=== PATIENT | female | born 1940 | race Caucasian/White ===

== ENCOUNTER 2020-04-12 09:52 | Inpatient (IN) | payer OTHER, MEDICARE ==
--- NOTE | 2020-04-12 10:04 | PDOC ---
History of Present Illness <Nallely Gómez - Last Filed: 04/12/20 12:26> - History of Present Illness Initial Comments: 04/12/20 11:29 80 yo female with pmh of dementia, CVA, epilepsy, afib, hld, anxiety disorder, GERD presents to ED after unwitnessed fall. Pt very poor historian due to dementia according to nursing aid. PT hx was given by nursing aid who said she got to [facility] and found her on the floor next to her bed. Pt according to [facility] was on floor ten min prior to arrival. Pt had unwitnessed fall complaining of left hip pain. PT yesterday was more off balance then normal so nursing aid g shaynee pt walker to walk. Pt currently not complaining of anything. PMH: GERD, Dementia, CVA, HLD, angina pectoris, afib PSH: unknown Allergies: NKDA Social: From [facility] <Santana Harris - Last Filed: 04/12/20 20:02> - General Stated Complaint: FALL Time Seen by Provider: 04/12/20 10:00 Past History <Nallely Gómez - Last Filed: 04/12/20 12:26> <Santana Harris - Last Filed: 04/12/20 20:02> - Medical History Allergies/Adverse Reactions: Allergies Allergy/AdvReac Type Severity Reaction Status Date / Time No Known Allergies Allergy Unverified 04/12/20 10:10 Home Medications: Ambulatory Orders Amlodipine Besylate [Norvasc -] 10 mg PO DAILY 04/12/20 Apixaban [Eliquis] 5 mg PO BID 04/12/20 Atorvastatin Ca [Lipitor] 40 mg PO HS 04/12/20 Cyanocobalamin [Vitamin B12 -] 100 mcg PO DAILY 04/12/20 Divalproex Sodium [Depakote] 500 mg PO BID 04/12/20 Folic Acid 1 mg PO DAILY 04/12/20 Irbesartan [Avapro] 300 mg PO DAILY 04/12/20 LORazepam [Ativan] 0.5 mg PO TID 04/12/20 Melatonin 3 mg PO HS 04/12/20 Metoprolol Tartrate [Lopressor] 50 mg PO BID 04/12/20 Pantoprazole Sodium 40 mg PO DAILY 04/12/20 Polyethylene Glycol 3350 [Miralax (For Daily Use) -] 17 gm PO DAILY 04/12/20 Thiamine HCl [B-1] 100 mg PO TID 04/12/20 Venlafaxine HCl [Effexor Xr] 75 mg PO DAILY 04/12/20 traZODone HCL [Trazodone HCl] 50 mg PO HS 04/12/20 Review of Systems - Review of Systems Able to Perform ROS?: No (pt dementia ) <Santana Harris - Last Filed: 04/12/20 20:02> *Physical Exam - Vital Signs Last Vital Signs Temp Pulse Resp BP Pulse Ox 97.8 F 74 18 140/53 L 95 04/12/20 10:00 04/12/20 10:00 04/12/20 10:00 04/12/20 10:00 04/12/20 10:00 <Nallely Gómez - Last Filed: 04/12/20 12:26> - Physical Exam 04/12/20 12:08 GENERAL: Awake, alert, and oriented x1 HEAD: No signs of trauma, normocephalic, atraumatic EYES: PERRLA, EOMI, sclera anicteric, conjunctiva clear ENT: Auricles normal inspection, hearing grossly normal, nares patent, dry oropharynx NECK: Normal ROM, supple, no lymphadenopathy, JVD, or masses LUNGS: No distress, speaks full sentences, clear to auscultation bilaterally HEART: Regular rate and rhythm, normal S1 and S2, no murmurs, rubs or gallops, peripheral pulses normal and equal bilaterally. ABDOMEN: Soft, nontender, normoactive bowel sounds. No guarding, no rebound. No masses EXTREMITIES : Normal inspection, Normal range of motion, no edema. No clubbing or cyanosis. NEUROLOGICAL: Cranial nerves II through XII intact. no focal sensorimotor deficits 5/5 muscle strength in bilateral upper and lower ext. SKIN: Warm, Dry, normal turgor, no rashes or lesions note 04/12/20 19:59 <Santana Harris - Last Filed: 04/12/20 20:02> Heart Score/ECG Review - ECG Impressions Comment:: 04/12/20 20:01 Normal sinus rhythm Normal KS, QRS, and QT interval T wave flattening in V1 and V2 no prior EKG. <Santana Harris - Last Filed: 04/12/20 20:02> ED Treatment Course - LABORATORY CBC & Chemistry Diagram: 04/12/20 10:25 04/12/20 10:25 - ADDITIONAL ORDERS Additional order review: Laboratory Results 04/12/20 04/12/20 04/12/20 11:05 10:25 10:25 PT with INR 14.20 H INR 1.18 H PTT (Actin FS) 27.6 Sodium 168 H* Potassium 4.8 Chloride 128 H Carbon Dioxide 27 Anion Gap 13 BUN 18.4 H Creatinine 1.1 Est GFR (CKD-EPI)AfAm 55.30 Est GFR (CKD-EPI)NonAf 47.71 Random Glucose 103 Calcium 8.3 L Total Bilirubin 0.5 AST 36 ALT 45 Alkaline Phosphatase 63 Troponin I < 0.02 Total Protein 6.0 L Albumin 2.4 L Urine Color Yellow Urine Appearance Clear Urine pH 6.0 Ur Specific [place] 1.017 Urine Protein Trace Urine Glucose (UA) Negative Urine Ketones Negative Urine Blood 1+ H Urine Nitrite Positive H Urine Bilirubin Negative Urine Urobilinogen 1.0 Ur Leukocyte Esterase 2+ H Urine WBC (Auto) 995 Urine RBC (Auto) 29 Urine Casts (Auto) 4 U Epithel Cells (Auto) 8 Urine Bacteria (Auto) >9,000 04/12/20 10:25 RBC 4.31 MCV 95.1 MCHC 31.7 L RDW 15.8 H MPV 10.3 Neutrophils % 75.4 Lymphocytes % 6.9 L Monocytes % 16.9 H Eosinophils % 0.4 Basophils % 0.4 - RADIOLOGY Radiology Studies Ordered: Category Date Time Status CERVICAL SPINE CT W/O CONTR [CT] Stat CT Scan 04/12/20 10:[address] WITHOUT CONTRAST [CT] Stat CT Scan 04/12/20 10:07 Completed CHEST X-RAY PORTABLE* [RAD] Stat Radiology 04/12/20 10:07 Completed - Medications Given in the ED: ED Medications Discontinued Medications Generic Name Dose Route Start Last Admin Trade Name Freq PRN Reason Stop Dose Admin Acetaminophen 1,000 mg 04/12/20 11:46 04/12/20 12:08 Ofirmev Injection - IVPB 04/12/20 11:47 1,000 mg ONCE ONE Administration <Nallely Gómez - Last Filed: 04/12/20 12:26> - LABORATORY CBC & Chemistry Diagram: 04/12/20 10:25 04/12/20 10:25 <Santana Harris - Last Filed: 04/12/20 20:02> Medical Decision Making - Medical Decision Making 04/12/20 12:09 80 yo female presents with pmh above for unwitnessed fall. Pt yesterday was having difficulty ambulating UA: UTI CMP: elevated Na Will give 1 L NaCl Will give 1g rocephin. Will admit for hypernatremia and UTI 04/12/20 12:27 Dr. Azeb Reynolds was made aware of pt HPI, ED course and plan. Pt admitted to . <Santana Harris - Last Filed: 04/12/20 20:02> Discharge - Discharge Information Problems reviewed: Yes - Admission Yes <Nallely Gómez - Last Filed: 04/12/20 12:26> - Discharge Information Problems reviewed: Yes - Admission Yes <Santana Harris - Last Filed: 04/12/20 20:02> - Discharge Information Clinical Impression/Diagnosis: Hypernatremia, Fall UTI (urinary tract infection) Qualifiers: Urinary tract infection type: site unspecified Hematuria presence: without hematuria Qualified Code(s): N39.0 - Urinary tract infection, site not specified Condition: Guarded
[2020-04-12 10:09] VITALS: BMI 28.9
--- OUTSIDE RECORDS SUMMARY | 2020-04-12 10:52 | XMS ---
:1940 Author Organization [facility] Care Team Providers Name Role Phone Dwaine Cedeño Unavailable Dwaine Cedeño Unavailable Dwaine Cedeño Unavailable Dwaine Cedeño Unavailable Re-disclosure Warning The records that you are about to access may contain information from federally- assisted alcohol or drug abuse programs. If such information is present, then the following federally mandated warning applies: This information has been disclosed to you from records protected by federal confidentiality rules (42 CFR part 2). The federal rules prohibit you from making any further disclosure of this information unless further disclosure is expressly permitted by the written consent of the person to whom it pertains or as otherwise permitted by 42 CFR part 2. A general authorization for the release of medical or other information is NOT sufficient for this purpose. The Federal rules restrict any use of the information to criminally investigate or prosecute any alcohol or drug abuse patient.The records that you are about to access may contain highly sensitive health information, the redisclosure of which is protected by Article 27-F of the [facility] Public Health law. If you continue you may haveaccess to information: Regarding HIV / AIDS; Provided by facilities licensed or operated by the [facility] Office of Mental Health; or Provided by the [facility] Office for People With Developmental Disabilities. If such information is present, then the following [facility] mandated warning applies: This information has been disclosed to you from confidential records which are protected by state law. State law prohibits you from making any further disclosure of this information without the specific written consent of the person to whom it pertains, or as otherwise permitted by law. Any unauthorized further disclosure in violation of state law may result in a fine or custodial sentence or both. A general authorization for the release of medical or other information is NOT sufficient authorization for further disclosure. Allergies and Adverse Reactions Type Description Substance Reaction Status Data Source(s ) No Known Allergies No Known Allergies P[facility] ([facility]) To Be Determined To Be Determined PC C ([facility]) Encounters Encounter Providers Location Date Indications Data Source(s ) Inpatient Attender: Dwaine 03/26/2020 [facility]:00 PM EDT Nursing H ome) Patient admitted. Insurance Providers Payer name Policy type Policy ID Covered Covered alliance party's Policy P toni / Coverage alliance party ID relationship to [facility] type reagan [facility] [id number] SP [id number] CARE OPTIONS MEDICARE [id number] SP [id number] Medicare MDA [id number] None [id number] SELF PAY 0000 Self 0000 A.A.R.P. [id number] Self [id number] MEDICARE B [id number] Self [id number] 2A MEDICARE A [id number] Self [id number] 2A Problems, Conditions, and Diagnoses Code Display Name Description Problem Type Effective Data Dates Source(s) I69.820 Aphasia following APHASIA FOLLOWING Diagnosis 03/26/2020 [facility] ([facility] other OTHER 12:00:00 AM [facility] cerebrovascular CEREBROVASCULAR EDT Nurs ing [place]) disease DISEASE K21.9 Gastro-esophageal GASTRO-ESOPHAGEAL Diagnosis 03/26/2020 [facility] ([facility] reflux disease REFLUX DISEASE 12:00:00 AM [facility] without esophagitis WITHOUT ESOPHAGITIS EDT [facility]) I10 Essential (primary) ESSENTIAL (PRIMARY) Diagnosis 020 [facility] ([facility] hypertension HYPERTENSION 12:00:00 AM [facility] EDT [facility]) I48.91 Unspecified atrial UNSPECIFIED ATRIAL Diagnosis 0 [facility] ([facility] fibrillation FIBRILLATION 12:00:00 AM [facility] EDT [facility]) G47.00 Insomnia, INSOMNIA, Diagnosis 03/26/2020 [facility] ([facility] unspecified UNSPECIFIED 12:00:00 AM [facility] EDT [facility]) K59.00 Constipation, CONSTIPATION, Diagnosis 03/26/2020 [facility] ([facility] unspecified UNSPECIFIED 12:00:00 AM [facility] EDT [facility]) I25.10 Atherosclerotic ATHEROSCLEROTIC Diagnosis 03/26/2020 [facility] ([facility] heart disease of HEART DISEASE OF 12:00:00 AM [facility] [place] coronary [place] CORONARY EDT Nurs ing Home) artery without ARTERY WITHOUT angina pectoris ANGINA PECTORIS E78.5 Hyperlipidemia, HYPERLIPIDEMIA, Diagnosis 03/26/2020 [facility] ([facility] unspecified UNSPECIFIED 12:00:00 AM [facility] EDT [facility]) F41.9 Anxiety disorder, ANXIETY DISORDER, Diagnosis 03/26/2020 [facility] ([facility] unspecified UNSPECIFIED 12:00:00 AM [facility] EDT [facility]) R26.2 Difficulty in DIFFICULTY IN Diagnosis 03/26/2020 [facility] ([facility] walking, not WALKING, NOT 12:00:00 AM [facility] elsewhere ELSEWHERE EDT [facility]) classified CLASSIFIED M62.81 Muscle weakness MUSCLE WEAKNESS Diagnosis 03/26/2020 [facility] (St. (generalized) (GENERALIZED) 12:00:00 AM [facility] EDT [facility]) J18.9 Pneumonia, PNEUMONIA, Diagnosis 03/26/2020 [facility] ([facility] unspecified UNSPECIFIED 12:00:00 AM [facility] organism ORGANISM EDT [facility]sp) J69.0 Pneumonitis due to PNEUMONITIS DUE TO Diagnosis 0 [facility] ([facility] inhalation of food INHALATION OF FOOD 12:00:00 AM [facility] and vomit AND VOMIT EDT [facility]) I63.9 Cerebral CEREBRAL Diagnosis 03/26/2020 [facility] ([facility] infarction, INFARCTION, 12:00:00 AM [facility] unspecified UNSPECIFIED EDT [facility]sp ) F32.9 Major depressive MAJOR DEPRESSIVE Diagnosis 03/26/2020 [facility] (St. disorder, single DISORDER, SINGLE 12:00:00 AM [facility]indy ferguson episode, EPISODE, EDT [facility]) unspecified UNSPECIFIED F03.91 Unspecified UNSPECIFIED Diagnosis 03/26/2020 [facility] ([facility] dementia with DEMENTIA WITH 12:00:00 AM [facility] behavioral BEHAVIORAL EDT [facility]) disturbance DISTURBANCE G40.804 Other epilepsy, OTHER EPILEPSY, Diagnosis 03/26/2020 [facility] ([facility]. intractable, INTRACTABLE, 12:00:00 AM [facility] without status WITHOUT STATUS EDT Nursin g Home) epilepticus EPILEPTICUS G93.41 Metabolic METABOLIC Diagnosis 03/26/2020 [facility] ([facility]. encephalopathy ENCEPHALOPATHY 12:00:00 AM [facility] EDT [facility]) Results ID Date Data Source [id number] 03/29/2020 12:16:00 PM EDT [facility] Name Value Range Interpretation Code Description Data Opal rce(s) Supporting Document(s ) HOLOGIC MARIANSDKY SARS-CoV-2 TMA PCR [facility] and reported by [facility]. ID Date Data Source [id number] 03/26/2020 10:03:00 AM EDT [facility] Name Value Range Interpretation Description Data Sup porting Code Source(s) Document(s ) SARS [facility] coronavirus 2 RNA [Presence] in Respiratory specimen by JENNIFER with probe detection This lab was ordered by [facility] and reported by [facility]. ID Date Data Source [id number] 03/17/2020 08:42:00 AM EDT [facility] Name Value Range Interpretation Description Data Sup porting Code Source(s) Document(s ) SARS [facility] coronavirus 2 RNA [Presence] in Respiratory specimen by JENNIFER with probe detection This lab was ordered by [facility] and reported by [facility]. ID Date Data Source [id number] 03/16/2020 11:10:00 AM EDT [facility] Name Value Range Interpretation Description Data Sup porting Code Source(s) Document(s ) SARS [facility] coronavirus 2 RNA [Presence] in Respiratory specimen by JENNIFER with probe detection This lab was ordered by [facility] and reported by [facility]. ID Date Data Source [id number] 01/19/2020 07:00:00 PM EDT [facility] Name Value Range Interpretation Description Data Sup porting Code Source(s) Document(s ) SARS [facility] coronavirus 2 RNA [Presence] in Respiratory specimen by JENNIFER with probe detection This lab was ordered by [facility] and reported by [facility]. ID Date Data Source [id number] 12/31/2019 05:00:00 PM EDT [facility] Name Value Range Interpretation Description Data Sup porting Code Source(s) Document(s ) [facility] coronavirus 2 RNA [Presence] in Respiratory specimen by JENNIFER with probe detection This lab was ordered by [facility] and reported by [facility]. Procedure
[2020-04-12 11:10] LABS: BASO % 0.4 % (0-2.0); EOS % 0.4 % (0-4.5); LYMPH % 6.9 % (8-40); MCH 30.1 pg (25.7-33.7); MCHC 31.7 g/dl (32.0-36.0); MEAN CELL VOLUME 95.1 fl (80-96); MEAN PLT VOLUME 10.3 fl (7.5-11.1); MONO % 16.9 % (3.8-10.2); NEUT % 75.4 % (42.8-82.8); PLATELET COUNT 121 K/MM3 (134-434); RBC 4.31 M/mm3 (3.60-5.2); RDW 15.8 % (11.6-15.6); WHITE BLOOD COUNT 11.8 K/mm3 (4.0-10.0)
[2020-04-12 11:17] LABS: INR 1.18 (0.83-1.09); PROTHROMBIN TIME (PATIENT) 14.2 SEC (9.7-13.0)
[2020-04-12 11:20] LABS: ACTIVATED PTT 27.6 SECONDS (25.2-36.5)
[2020-04-12 11:29] LABS: CHLORIDE 128 mmol/L (98-107); POTASSIUM 4.8 mmol/L (3.5-5.1)
[2020-04-12 11:30] LABS: CALCIUM 8.3 mg/dL (8.5-10.1)
[2020-04-12 11:31] LABS: ALBUMIN 2.4 g/dl (3.4-5.0); BLOOD UREA NITROGEN 18.4 mg/dL (7-18); CO2 27 mmol/L (21-32); GLUCOSE,RANDOM 103 mg/dL (74-106)
[2020-04-12] MEDS ORDERED: SODIUM CHLORIDE 500 ML IV STA (11:32)
[2020-04-12 11:34] LABS: CREATININE 1.1 mg/dL (0.55-1.3); SGOT/AST 36 U/L (15-37); SGPT/ALT 45 U/L (13-61)
[2020-04-12 11:36] LABS: BILIRUBIN,TOTAL 0.5 mg/dL (0.2-1)
[2020-04-12 11:37] LABS: ALK PHOS 63 U/L (45-117)
[2020-04-12 11:41] LABS: ANION GAP 13 MMOL/L (8-16)
[2020-04-12 11:43] LABS: EPI CELLS 8 /uL (0-25.1); HYALINE CASTS 4 /uL (0-3.1); URINE APPEARANCE CLEAR; URINE BACTERIA >9,000 /uL (0-1359); URINE BILIRUBIN NEGATIVE (NEGATIVE); URINE COLOR YELLOW; URINE GLUCOSE (UA) NEGATIVE (NEGATIVE); URINE KETONE NEGATIVE (NEGATIVE); URINE LEUK ESTERASE 2+ (NEGATIVE); URINE NITRITE POSITIVE (NEGATIVE); URINE PROTEIN TRACE (NEGATIVE); URINE RBC 29 /uL (0-23.9); URINE WBC 995 /uL (0-25.8)
[2020-04-12 11:43] LABS: SODIUM 168 mmol/L (136-145)
[2020-04-12] MEDS ORDERED: ACETAMINOPHEN 1000 MG/100 ML VIAL (NON FORMULARY) IVPB ONE (11:46)
[2020-04-12] MEDS ORDERED: ACETAMINOPHEN INJECTION 100 ML IVPB ONE (11:50)
--- NOTE | 2020-04-12 11:57 | PDOC ---
Documentation entered by Loren Kerr SCRIBE, acting as scribe for Tayo Hodges MD. Tayo Hodges MD: This documentation has been prepared by the Usha morrison Xhesika, SCRIBE, under my direction and personally reviewed by me in its entirety. I confirm that the documentation accurately reflects all work, treatment, procedures, and medical decision making performed by me. Attending Attestation - Resident Resident Name: Santana Harris - ED Attending Attestation I have performed the following: I have examined & evaluated the patient, The case was reviewed & discussed with the resident, I agree w/resident's findings & plan, Exceptions are as noted - HPI HPI: 04/12/20 10:06 80y/o F with a pmh of metabolic encephalopathy, HTN, HLD, epilepsy, dementia, cerebral infraction, aphasia, AFib, GERD, anxiety and depression who presents to the ED BIBA from [facility] s/p fall. Per [place] records, the patient was found down this morning. History is limited due to patient's clinical condition. Aide mentions the pt had been alittle wobbly when walking yesterday, normally she walks stabily without assistance of any walker/canes. Per aide, when she arrived, everyone was surrounding the patient as she had evidently fallen. The aide mentioned that someone had checked on her eralier and she was in bed, but was uncertain to when she was checked upon. The pt denies any complaints including fever/chills, cp, sob, n/v, abd pain, headache, neck pain, cough, dysuria, diarrhea, however uncertain how reliable her history is due to her dementia/aphasia Allergies: NKDA PCP: Dwaine Donis - Physicial Exam PE: 04/12/20 11:40 GENERAL: The patient is awake, alert, oriented x 0, Nontoxic - in no acute distress. HEAD: Normocephalic, atraumatic. EYES: extraocular movements intact, sclera anicteric, conjunctiva clear. ENT: Normal voice, dry mucous membranes. NECK: Normal range of motion, supple LUNGS: Breath sounds equal, clear to auscultation bilaterally. No wheezes, no rhonchi, no rales. HEART: Regular rate and rhythm, normal S1 and S2 without murmur, rub or gallop. ABDOMEN: Soft, nontender, No guarding, no rebound. No CVA tenderness EXTREMITIES: Normal range of motion, no edema. mild pain on palpation to R hip SKIN: Warm, Dry, normal turgor, - Medical Decision Making 04/12/20 11:44 ddx includes dehdyration, metabolic derangement, occult infection, will hydrate labs reviewed noted for hypernatremia, likely secondary to dehydration ua consistent with UTI will hydrate will admit for further management Heart Score/ECG Review - ECG Impressions Comment:: 04/12/20 12:27 Twelve-lead EKG was performed and reviewed by me. There is normal sinus rhythm with a normal rate. rate of 72 Q wave in lead [address] changes suggestive of acute ischemia Discharge - Discharge Information Problems reviewed: Yes Clinical Impression/Diagnosis: Hypernatremia, Dehydration UTI (urinary tract infection) Qualifiers: Urinary tract infection type: site unspecified Hematuria presence: without hematuria Qualified Code(s): N39.0 - Urinary tract infection, site not specified Fall Qualifiers: Encounter type: initial encounter Qualified Code(s): W19.XXXA - Unspecified fall, initial encounter Condition: Guarded - Follow up/Referral - Patient Discharge Instructions - Post Discharge Activity
[2020-04-12] MEDS ORDERED: CEFTRIAXONE 1,000 MG in DEXTROSE 5%-WATER - 50 ML IVPB ONE (12:00)
[2020-04-12] MEDS ORDERED: CEFTRIAXONE 1 GM/50 ML BAG ONE (12:12)
[2020-04-12] MEDS ORDERED: ACETAMINOPHEN 325 MG TABLET (FP) PO PRN (14:38)
--- NOTE | 2020-04-12 14:43 | HP ---
Admitting History and Physical - Primary Care Physician PCP: Azeb Reynolds - Admission History of Present Illness: Pt seen/ examined in Er Chart is reviewed Case d/w Er Physician/ Resident Per Er records and i concur 80y/o F with a pmh of metabolic encephalopathy, HTN, HLD, epilepsy, dementia, cerebral infraction, aphasia, AFib, GERD, anxiety and depression who presents to the ED BIBA from [facility] s/p fall. Per [place] records, the patient was found down this morning. History is limited due to patient's clinical condition. Aide mentions the pt had been alittle wobbly when walking yesterday, normally she walks stabily without assistance of any walker/canes. Per aide, when she arrived, everyone was surrounding the patient as she had evidently fallen. The aide mentioned that someone had checked on her eralier and she was in bed, but was uncertain to when she was checked upon. The pt denies any complaints including fever/chills, cp, sob, n/v, abd pain, headache, neck pain, cough, dysuria, diarrhea, however uncertain how reliable her history is due to her dementia/aphasia Allergies: NKDA PCP: Dwaine Donis Work up in Er -ve for fracture Ct head -ve for acute pathology Labs Na >>168 Given fluids in Er as well as Abx for uti I also d/w Pts aid who is at bedside Cxr - Infiltrate ? History Source: Medical Record, Caregiver Limitations to Obtaining History: Clinical Condition - Past Medical History FEATHER SEPARATOR: Yes: Dementia - Smoking History Smoking history: Unknown if ever smoked Home Medications - Allergies Allergies/Adverse Reactions: Allergies Allergy/AdvReac Type Severity Reaction Status Date / Time No Known Allergies Allergy Unverified 04/12/20 10:10 - Home Medications Home Medications: Ambulatory Orders Amlodipine Besylate [Norvasc -] 10 mg PO DAILY 04/12/20 Apixaban [Eliquis] 5 mg PO BID 04/12/20 Atorvastatin Ca [Lipitor] 40 mg PO HS 04/12/20 Cyanocobalamin [Vitamin B12 -] 100 mcg PO DAILY 04/12/20 Divalproex Sodium [Depakote] 500 mg PO BID 04/12/20 Folic Acid 1 mg PO DAILY 04/12/20 Irbesartan [Avapro] 300 mg PO DAILY 04/12/20 LORazepam [Ativan] 0.5 mg PO TID 04/12/20 Melatonin 3 mg PO HS 04/12/20 Metoprolol Tartrate [Lopressor] 50 mg PO BID 04/12/20 Pantoprazole Sodium 40 mg PO DAILY 04/12/20 Polyethylene Glycol 3350 [Miralax (For Daily Use) -] 17 gm PO DAILY 04/12/20 Thiamine HCl [B-1] 100 mg PO TID 04/12/20 Venlafaxine HCl [Effexor Xr] 75 mg PO DAILY 04/12/20 traZODone HCL [Trazodone HCl] 50 mg PO HS 04/12/20 Review of Systems - Review of Systems Constitutional: reports: No Symptoms Eyes: reports: No Symptoms Neck: reports: No Symptoms Cardiovascular: reports: No Symptoms Respiratory: reports: No Symptoms Gastrointestinal: reports: No Symptoms Genitourinary: reports: Dysuria Neurological: reports: No Symptoms Psychiatric: reports: No Symptoms Physical Examination Vital Signs: Vital Signs Temperature 97.8 F 04/12/20 13:44 Pulse Rate 74 04/12/20 13:44 Respiratory Rate 18 04/12/20 13:44 Blood Pressure 135/56 L 04/12/20 13:44 O2 Sat by Pulse Oximetry (%) 95 04/12/20 10:00 Constitutional: Yes: No Distress, Calm Eyes: Yes: Conjunctiva Clear, PERRL Neck: Yes: Supple Cardiovascular: Yes: Regular Rate and Rhythm Respiratory: Yes: CTA Bilaterally Gastrointestinal: Yes: Soft Edema: No Neurological: Yes: Alert Labs: CBC, BMP 04/12/20 10:25 04/12/20 10:25 Imaging - Results Chest X-ray: Report Reviewed Cat Scan: Report Reviewed Problem List - Problems (1) Dementia Code(s): F03.90 - UNSPECIFIED DEMENTIA WITHOUT BEHAVIORAL DISTURBANCE (2) Fall Code(s): W19.XXXA - UNSPECIFIED FALL, INITIAL ENCOUNTER (3) Hypernatremia Code(s): E87.0 - HYPEROSMOLALITY AND HYPERNATREMIA (4) UTI (urinary tract infection) Code(s): N39.0 - URINARY TRACT INFECTION, SITE NOT SPECIFIED Qualifiers: Urinary tract infection type: site unspecified Hematuria presence: without hematuria Qualified Code(s): N39.0 - Urinary tract infection, site not specified Assessment/Plan Stable Monitor Fluids abx f/u urine cultures fall precautions hold Eliquis today and consider restarting after repeat ct scan Repeat ct head tomorrow Doubt pneumonia repeat cxr after hydration f/u labs will follow
[2020-04-12] MEDS: SODIUM CHLORIDE 1,000 ML IV SCH (15:01)
--- NOTE | 2020-04-12 15:16 | EKG ---
Test Reason : Blood Pressure : / mmHG Vent. Rate : 073 BPM Atrial Rate : 073 BPM P-R Int : 142 ms QRS Dur : 074 ms QT Int : 396 ms P-R-T Axes : 034 027 088 degrees QTc Int : 436 ms NORMAL SINUS RHYTHM SEPTAL INFARCT , AGE UNDETERMINED ABNORMAL ECG NO PREVIOUS ECGS AVAILABLE Confirmed by KEITH AL MD ([id number]) on 04/12/2020 3:15:39 PM Referred By: Confirmed By:KEITH AL MD
[2020-04-12] MEDS: traZODone HCL 50 MG TABLET (FP) PO SCH (21:56)
[2020-04-12] MEDS: METOPROLOL TARTRATE 50 MG TABLET (FP) PO SCH (21:56)
[2020-04-12] MEDS: ATORVASTATIN CA 40 MG TABLET (FP) PO SCH (21:56)
[2020-04-12] MEDS: THIAMINE HCL 100 MG TABLET (FP) PO SCH (21:57)
[2020-04-12] MEDS ORDERED: MELATONIN 1 MG TABLET PO SCH (22:00)
[2020-04-12] MEDS: DIVALPROEX SODIUM 250 MG TABLET E.C. PO SCH (22:55)
[2020-04-13] MEDS: LORazepam 0.5 MG TABLET PO PRN ×2 (02:33→22:10)
[2020-04-13] MEDS: THIAMINE HCL 100 MG TABLET (FP) PO SCH ×3 (06:48→22:10)
[2020-04-13] MEDS: SODIUM CHLORIDE 1,000 ML IV SCH ×2 (06:57→16:02)
[2020-04-13 08:00] LABS: EOS % 2.3 % (0-4.5); HEMATOCRIT 37.5 % (32.4-45.2); HEMOGLOBIN 12.3 GM/dL (10.7-15.3); LYMPH % 12.3 % (8-40); MCH 30.6 pg (25.7-33.7); MCHC 32.7 g/dl (32.0-36.0); MEAN CELL VOLUME 93.5 fl (80-96); MEAN PLT VOLUME 10.9 fl (7.5-11.1); NEUT % 64.4 % (42.8-82.8); PLATELET COUNT 110 K/MM3 (134-434); RDW 15.5 % (11.6-15.6); WHITE BLOOD COUNT 9.2 K/mm3 (4.0-10.0)
[2020-04-13 08:26] LABS: CALCIUM 8.1 mg/dL (8.5-10.1)
[2020-04-13 08:27] LABS: ALBUMIN 2.1 g/dl (3.4-5.0); BLOOD UREA NITROGEN 14.6 mg/dL (7-18)
[2020-04-13 08:31] LABS: CREATININE 0.8 mg/dL (0.55-1.3)
[2020-04-13 08:32] LABS: BILIRUBIN,TOTAL 0.6 mg/dL (0.2-1); TOT PROT 5.2 g/dl (6.4-8.2)
[2020-04-13] MEDS ORDERED: PT OWN MED DRAWER 7, Y5N ONE (09:49)
[2020-04-13] MEDS ORDERED: cefTRIAXone SODIUM 1 GM VIAL ONE (09:50)
[2020-04-13] MEDS ORDERED: DEXTROSE 5%-WATER - 50 ML IVPB ONE (09:50)
[2020-04-13] MEDS: POLYETHYLENE GLYCOL 3350 119 GM BTL PO SCH (10:00)
[2020-04-13] MEDS: DIVALPROEX SODIUM 250 MG TABLET E.C. PO SCH ×2 (10:00→22:09)
[2020-04-13] MEDS ORDERED: LOSARTAN POTASSIUM 100 MG TABLET PO SCH (10:00)
[2020-04-13] MEDS: FOLIC ACID 1 MG TABLET (FP) PO SCH (10:01)
[2020-04-13] MEDS: CEFTRIAXONE 1 GM in DEXTROSE 5%-WATER - 50 ML IVPB SCH (10:01)
[2020-04-13] MEDS: METOPROLOL TARTRATE 50 MG TABLET (FP) PO SCH ×2 (10:01→22:10)
[2020-04-13] MEDS: VENLAFAXINE HCL 75 MG E.R. CAPSULES PO SCH (10:01)
[2020-04-13] MEDS: CYANOCOBALAMIN (VITAMIN B-12) 100 MCG TABLET PO SCH (10:01)
[2020-04-13] MEDS: PANTOPRAZOLE 40 MG TABLET PO SCH (10:01)
[2020-04-13] MEDS: amLODIPine BESYLATE 10 MG TABLET (FP) PO SCH (10:01)
[2020-04-13] MEDS: LOSARTAN POTASSIUM 50 MG TABLET PO SCH (10:13)
--- NOTE | 2020-04-13 14:10 | PN ---
Progress Note (short form) - Note Progress Note: drowsy but awakens to being called No distress pt was anxious this AM per RN Vital Signs - 24 hr 04/12/20 04/12/20 04/12/20 18:03 18:47 21:00 Temperature 98.2 F 98.4 F Pulse Rate 92 H Pulse Rate [ 74 Left Radial] Respiratory 18 20 18 Rate Blood Pressure 140/83 Blood Pressure 134/76 [Right Arm] O2 Sat by Pulse 97 97 94 L Oximetry (%) 04/12/20 04/13/20 04/13/20 22:09 06:00 10:00 Temperature 98.4 F 97.1 F L Pulse Rate 81 74 86 Pulse Rate [ Left Radial] Respiratory 18 18 18 Rate Blood Pressure 141/67 127/61 150/90 Blood Pressure [Right Arm] O2 Sat by Pulse 94 L 92 L Oximetry (%) Current Medications Generic Name Dose Route Start Last Admin Trade Name Freq PRN Reason Stop Dose Admin Acetaminophen 650 mg 04/12/20 14:38 04/13/20 03:18 Tylenol - PO 650 mg Q4H PRN Administration PAIN LEVEL 1-5 Amlodipine Besylate 10 mg 04/13/20 10:00 04/13/20 10:01 Norvasc - PO 10 mg DAILY [place] Administration Apixaban 5 mg 04/13/20 22:00 Eliquis - PO BID [place] Atorvastatin Calcium 40 mg 04/12/20 22:00 04/12/20 21:56 Lipitor - PO 40 mg HS [place] Administration Cyanocobalamin 100 mcg 04/13/20 10:00 04/13/20 10:01 Vitamin B12 - PO 100 mcg DAILY [place] Administration Divalproex Sodium 500 mg 04/12/20 22:00 04/13/20 10:00 Depakote - PO 500 mg BID [place] Administration Folic Acid 1 mg 04/13/20 10:00 04/13/20 10:01 Folic Acid - PO 1 mg DAILY [place] Administration Sodium Chloride 1,000 mls @ 100 mls/hr 04/12/20 14:45 04/13/20 06:57 Normal Saline - IV 100 mls/hr ASDIR [place] Administration Ceftriaxone Sodium 1 gm/ 50 mls @ 200 mls/hr 04/13/20 10:00 04/13/20 10:01 Dextrose IVPB 200 mls/hr DAILY [place] Administration Protocol Lorazepam 0.5 mg 04/12/20 14:34 04/13/20 02:33 Ativan - PO 0.5 mg TID PRN Administration ANXIETY Losartan Potassium 100 mg 04/13/20 10:15 04/13/20 10:13 Cozaar - PO 100 mg DAILY [place] Administration Metoprolol Tartrate 50 mg 04/12/20 22:00 04/13/20 10:01 Lopressor - PO 50 mg BID [place] Administration Pantoprazole Sodium 40 mg 04/13/20 10:00 04/13/20 10:01 Protonix - PO 40 mg DAILY [place] Administration Polyethylene Glycol 17 gm 04/13/20 10:00 04/13/20 10:00 Miralax (For Daily Use) - PO 17 gm DAILY [place] Administration Thiamine HCl 100 mg 04/12/20 22:00 04/13/20 06:48 Vitamin B1 - PO 100 mg TID [place] Administration Trazodone HCl 50 mg 04/12/20 22:00 04/12/20 21:56 Desyrel - PO 50 mg HS [place] Administration Venlafaxine HCl 75 mg 04/13/20 10:00 04/13/20 10:01 Effexor Xr - PO 75 mg DAILY [place] Administration Laboratory Results - last 24 hr 04/12/20 04/13/20 04/13/20 13:25 06:55 06:55 WBC 9.2 RBC 4.00 Hgb 12.3 Hct 37.5 MCV 93.5 MCH 30.6 MCHC 32.7 RDW 15.5 Plt Count 110 L MPV 10.9 Absolute Neuts (auto) 5.9 Neutrophils % 64.4 Lymphocytes % 12.3 D Monocytes % 20.0 H Eosinophils % 2.3 D Basophils % 1.0 Nucleated RBC % 0 Sodium 138 Potassium 4.0 Chloride 105 Carbon Dioxide 25 Anion Gap 8 BUN 14.6 Creatinine 0.8 Est GFR (CKD-EPI)AfAm 81.27 Est GFR (CKD-EPI)NonAf 70.12 POC Glucometer Random Glucose 81 Calcium 8.1 L Total Bilirubin 0.6 AST 32 ALT 38 Alkaline Phosphatase 61 Total Protein 5.2 L Albumin 2.1 L TSH 1.51 COVID-19 ([facility]ENN[facility]ER) Not detected 04/13/20 11:16 WBC RBC Hgb Hct MCV MCH MCHC RDW Plt Count MPV Absolute Neuts (auto) Neutrophils % Lymphocytes % Monocytes % Eosinophils % Basophils % Nucleated RBC % Sodium Potassium Chloride Carbon Dioxide Anion Gap BUN Creatinine Est GFR (CKD-EPI)AfAm Est GFR (CKD-EPI)NonAf POC Glucometer 99 Random Glucose Calcium Total Bilirubin AST ALT Alkaline Phosphatase Total Protein Albumin TSH COVID-19 ([facility]ENNIFER) S1 S2 RRR Lungs clear Abd- soft, NT NO edema PLAN IV fluids IV antibiotics Urine culture noted dc Melatonin continue with meds Pt is DNR
[2020-04-13] MEDS: ATORVASTATIN CA 40 MG TABLET (FP) PO SCH (22:10)
[2020-04-13] MEDS: APIXABAN 5 MG TABLET PO SCH (22:10)
[2020-04-13] MEDS: traZODone HCL 50 MG TABLET (FP) PO SCH (22:10)
[2020-04-14] MEDS: THIAMINE HCL 100 MG TABLET (FP) PO SCH ×3 (05:43→21:20)
[2020-04-14] MEDS ORDERED: PT OWN MED DRAWER 7, Y5N ONE (08:56)
[2020-04-14] MEDS ORDERED: cefTRIAXone SODIUM 1 GM VIAL ONE (08:57)
[2020-04-14] MEDS ORDERED: DEXTROSE 5%-WATER - 50 ML IVPB ONE (08:57)
[2020-04-14] MEDS: amLODIPine BESYLATE 10 MG TABLET (FP) PO SCH (10:12)
[2020-04-14] MEDS: VENLAFAXINE HCL 75 MG E.R. CAPSULES PO SCH (10:13)
[2020-04-14] MEDS: APIXABAN 5 MG TABLET PO SCH (10:13)
[2020-04-14] MEDS: LOSARTAN POTASSIUM 50 MG TABLET PO SCH (10:13)
[2020-04-14] MEDS: PANTOPRAZOLE 40 MG TABLET PO SCH (10:13)
[2020-04-14] MEDS: METOPROLOL TARTRATE 50 MG TABLET (FP) PO SCH ×2 (10:14→21:20)
[2020-04-14] MEDS: CEFTRIAXONE 1 GM in DEXTROSE 5%-WATER - 50 ML IVPB SCH (10:14)
[2020-04-14] MEDS: DIVALPROEX SODIUM 500 MG TABLET E.C. PO SCH ×2 (10:14→21:49)
[2020-04-14] MEDS: POLYETHYLENE GLYCOL 3350 119 GM BTL PO SCH (10:15)
[2020-04-14] MEDS: FOLIC ACID 1 MG TABLET (FP) PO SCH (10:15)
[2020-04-14] MEDS: CYANOCOBALAMIN (VITAMIN B-12) 100 MCG TABLET PO SCH (10:55)
--- NOTE | 2020-04-14 12:32 | PN ---
Progress Note (short form) - Note Progress Note: more awake No distress pt was anxious this AM per RN Vital Signs - 24 hr 04/13/20 04/14/20 04/14/20 22:00 09:00 14:00 Temperature 98.0 F 98.1 F Pulse Rate 79 64 Respiratory 18 17 20 Rate Blood Pressure 142/65 145/69 O2 Sat by Pulse 94 L 98 94 L Oximetry (%) 04/14/20 04/14/20 20:33 21:16 Temperature 99.2 F Pulse Rate 80 Respiratory 20 Rate Blood Pressure 153/73 O2 Sat by Pulse 95 94 L Oximetry (%) Current Medications Generic Name Dose Route Start Last Admin Trade Name Freq PRN Reason Stop Dose Admin Acetaminophen 650 mg 04/12/20 14:38 04/13/20 03:18 Tylenol - PO 650 mg Q4H PRN Administration PAIN LEVEL 1-5 Amlodipine Besylate 10 mg 04/13/20 10:00 04/14/20 10:12 Norvasc - PO 10 mg DAILY [place] Administration Apixaban 2.5 mg 04/14/20 22:00 04/14/20 21:19 Eliquis - PO 2.5 mg BID [place] Administration Atorvastatin Calcium 40 mg 04/12/20 22:00 04/14/20 21:20 Lipitor - PO 40 mg HS [place] Administration Cyanocobalamin 100 mcg 04/13/20 10:00 04/14/20 10:55 Vitamin B12 - PO 100 mcg DAILY [place] Administration Divalproex Sodium 500 mg 04/14/20 01:44 04/14/20 10:14 Depakote - PO 500 mg BID [place] Administration Folic Acid 1 mg 04/13/20 10:00 04/14/20 10:15 Folic Acid - PO 1 mg DAILY [place] Administration Ceftriaxone Sodium 1 gm/ 50 mls @ 200 mls/hr 04/13/20 10:00 04/14/20 10:14 Dextrose IVPB 200 mls/hr DAILY [place] Administration Protocol Lorazepam 0.5 mg 04/12/20 14:34 04/14/20 21:23 Ativan - PO 0.5 mg TID PRN Administration ANXIETY Losartan Potassium 100 mg 04/13/20 10:15 04/14/20 10:13 Cozaar - PO 100 mg DAILY [place] Administration Metoprolol Tartrate 50 mg 04/12/20 22:00 04/14/20 21:20 Lopressor - PO 50 mg BID [place] Administration Pantoprazole Sodium 40 mg 04/13/20 10:00 04/14/20 10:13 Protonix - PO 40 mg DAILY [place] Administration Polyethylene Glycol 17 gm 04/13/20 10:00 04/14/20 10:15 Miralax (For Daily Use) - PO 17 gm DAILY [place] Administration Thiamine HCl 100 mg 04/12/20 22:00 04/14/20 21:20 Vitamin B1 - PO 100 mg TID [place] Administration Trazodone HCl 50 mg 04/12/20 22:00 04/14/20 21:20 Desyrel - PO 50 mg HS [place] Administration Venlafaxine HCl 75 mg 04/13/20 10:00 04/14/20 10:13 Effexor Xr - PO 75 mg DAILY [place] Administration S1 S2 RRR Lungs clear Abd- soft, NT NO edema PLAN IV fluids-- dc IV antibiotics Urine culture noted dc Melatonin continue with meds Pt is DNR Problem List - Problems (1) Dehydration Code(s): E86.0 - DEHYDRATION (2) Dementia Code(s): F03.90 - UNSPECIFIED DEMENTIA WITHOUT BEHAVIORAL DISTURBANCE (3) Hypernatremia Code(s): E87.0 - HYPEROSMOLALITY AND HYPERNATREMIA (4) UTI (urinary tract infection) Code(s): N39.0 - URINARY TRACT INFECTION, SITE NOT SPECIFIED Qualifiers: Urinary tract infection type: site unspecified Hematuria presence: without hematuria Qualified Code(s): N39.0 - Urinary tract infection, site not specified
[2020-04-14] MEDS: APIXABAN 2.5 MG TABLET PO SCH (21:19)
[2020-04-14] MEDS: ATORVASTATIN CA 40 MG TABLET (FP) PO SCH (21:20)
[2020-04-14] MEDS: traZODone HCL 50 MG TABLET (FP) PO SCH (21:20)
[2020-04-14] MEDS: LORazepam 0.5 MG TABLET PO PRN (21:23)
[2020-04-15] MEDS: THIAMINE HCL 100 MG TABLET (FP) PO SCH ×2 (05:01→14:39)
[2020-04-15] MEDS ORDERED: cefTRIAXone SODIUM 1 GM VIAL ONE ×2 (09:34→09:36)
[2020-04-15] MEDS ORDERED: DEXTROSE 5%-WATER - 50 ML IVPB ONE (09:35)
[2020-04-15] MEDS: APIXABAN 2.5 MG TABLET PO SCH (09:41)
[2020-04-15] MEDS: CYANOCOBALAMIN (VITAMIN B-12) 100 MCG TABLET PO SCH (09:41)
[2020-04-15] MEDS: FOLIC ACID 1 MG TABLET (FP) PO SCH (09:41)
[2020-04-15] MEDS: amLODIPine BESYLATE 10 MG TABLET (FP) PO SCH (09:41)
[2020-04-15] MEDS: METOPROLOL TARTRATE 50 MG TABLET (FP) PO SCH (09:41)
[2020-04-15] MEDS: PANTOPRAZOLE 40 MG TABLET PO SCH (09:41)
[2020-04-15] MEDS: CEFTRIAXONE 1 GM in DEXTROSE 5%-WATER - 50 ML IVPB SCH (09:41)
[2020-04-15] MEDS: VENLAFAXINE HCL 75 MG E.R. CAPSULES PO SCH (09:41)
[2020-04-15] MEDS: LOSARTAN POTASSIUM 50 MG TABLET PO SCH (09:41)
[2020-04-15] MEDS: POLYETHYLENE GLYCOL 3350 119 GM BTL PO SCH (09:46)
[2020-04-15] MEDS ORDERED: PT OWN MED DRAWER 7, Y5N ONE (09:46)
[2020-04-15] MEDS: DIVALPROEX SODIUM 500 MG TABLET E.C. PO SCH (09:46)
--- NOTE | 2020-04-15 13:33 | DS ---
Physical Examination Vital Signs: Vital Signs Temperature 98.8 F 04/15/20 10:46 Pulse Rate 88 04/15/20 10:46 Respiratory Rate 20 04/15/20 10:46 Blood Pressure 162/68 04/15/20 10:46 O2 Sat by Pulse Oximetry (%) 95 04/15/20 10:46 Constitutional: Yes: No Distress, Calm Cardiovascular: Yes: Regular Rate and Rhythm Respiratory: Yes: CTA Bilaterally Gastrointestinal: Yes: Normal Bowel Sounds, Soft. No: Tenderness Edema: No Labs: CBC, BMP 04/13/20 06:55 04/13/20 06:55 Discharge Summary Problems reviewed: Yes Reason For Visit: URINARY TRACT INFECTION;HYPERNATREMIA;FALL Current Active Problems Dehydration (Acute) Dementia (Acute) Fall (Acute) Hypernatremia (Acute) UTI (urinary tract infection) (Acute) Health Concerns: Admitting History and Physical - Primary Care Physician PCP: Azeb Reynolds - Admission History of Present Illness: Pt seen/ examined in Er Chart is reviewed Case d/w Er Physician/ Resident Per Er records and i concur 80y/o F with a pmh of metabolic encephalopathy, HTN, HLD, epilepsy, dementia, cerebral infraction, aphasia, AFib, GERD, anxiety and depression who presents to the ED BIBA from [facility] s/p fall. Per [place] records, the patient was found down this morning. History is limited due to patient's clinical condition. Aide mentions the pt had been alittle wobbly when walking yesterday, normally she walks stabily without assistance of any walker/canes. Per aide, when she arrived, everyone was surrounding the patient as she had evidently fallen. The aide mentioned that someone had checked on her eralier and she was in bed, but was uncertain to when she was checked upon. The pt denies any complaints including fever/chills, cp, sob, n/v, abd pain, headache, neck pain, cough, dysuria, diarrhea, however uncertain how reliable her history is due to her dementia/aphasia Allergies: NKDA PCP: Dwaine Donis Work up in Er -ve for fracture Ct head -ve for acute pathology Labs Na >>168 Given fluids in Er as well as Abx for uti I also d/w Pts aid who is at bedside Cxr - Infiltrate ? Hospital course pt was on ceftriaxone for UTI mentation better COVID negative urine cultures positive for UTI Repeat CT head- negative for bleed restarted Eliquis CXR-repeated-- negative for pneumonia stable for dc to NH on PO antibiotics Condition: Guarded - Instructions Referrals: Dwaine Cedeño [Primary Care Provider] - - Home Medications Comprehensive Discharge Medication List: Ambulatory Orders Amlodipine Besylate [Norvasc -] 10 mg PO DAILY 04/12/20 Atorvastatin Ca [Lipitor] 40 mg PO HS 04/12/20 Cyanocobalamin [Vitamin B12 -] 100 mcg PO DAILY 04/12/20 Divalproex Sodium [Depakote] 500 mg PO BID 04/12/20 Folic Acid 1 mg PO DAILY 04/12/20 Irbesartan [Avapro] 300 mg PO DAILY 04/12/20 LORazepam [Ativan] 0.5 mg PO TID 04/12/20 Melatonin 3 mg PO HS 04/12/20 Metoprolol Tartrate [Lopressor] 50 mg PO BID 04/12/20 Pantoprazole Sodium 40 mg PO DAILY 04/12/20 Polyethylene Glycol 3350 [Miralax 119 gm Btl -] 17 gm PO DAILY 04/12/20 Thiamine HCl [B-1] 100 mg PO TID 04/12/20 Venlafaxine HCl [Effexor Xr] 75 mg PO DAILY 04/12/20 traZODone HCL [Trazodone HCl] 50 mg PO HS 04/12/20 Apixaban [Eliquis -] 2.5 mg PO BID #60 tablet 04/15/20 Cephalexin [Keflex] 500 mg PO BID #10 capsule 04/15/20
[2020-04-15 15:58] VITALS: BP 141/53; PULSE 71; TEMP 98.5
== END 2020-04-15 19:38 | DRG 690 ==
LOC: JER 09:52 → JERBED 12:26 → J6S 18:20
PROVIDERS: ADMIT Internal Medicine; ATTEND Internal Medicine
DX: N39.0 Urinary tract infection, site not specified (principal); E87.0 Hyperosmolality and hypernatremia; E86.0 Dehydration; F03.90 Unspecified dementia, unspecified severity, without behavioral disturbance, psychotic disturbance, mood disturbance, and anxiety; E78.5 Hyperlipidemia, unspecified; K21.9 Gastro-esophageal reflux disease without esophagitis; G40.909 Epilepsy, unspecified, not intractable, without status epilepticus; I69.920 Aphasia following unspecified cerebrovascular disease; I48.91 Unspecified atrial fibrillation; I10 Essential (primary) hypertension; F41.8 Other specified anxiety disorders; W19.XXXA Unspecified fall, initial encounter
CPT/HCPCS: 36415; 70450-TC; 71045-TC-FY; 72125-TC; 73523-TC-FY; 80053; 81003; 82962; 84443; 84484; 85025; 85610; 85730; 87086; 87186; 93005; 93010; 99285-25; C9803; J0131; U0003

== ENCOUNTER 2020-05-10 13:39 | Inpatient (IN) | payer OTHER, MEDICARE ==
[2020-05-10 15:07] LABS: BASO % 1.3 % (0-2.0); EOS % 1.7 % (0-4.5); HEMATOCRIT 40.6 % (32.4-45.2); HEMOGLOBIN 13.4 GM/dL (10.7-15.3); LYMPH % 15.8 % (8-40); MCH 31.3 pg (25.7-33.7); MCHC 32.9 g/dl (32.0-36.0); MEAN CELL VOLUME 95.2 fl (80-96); MEAN PLT VOLUME 8.8 fl (7.5-11.1); NEUT % 67.2 % (42.8-82.8); PLATELET COUNT 200 K/MM3 (134-434); RBC 4.27 M/mm3 (3.60-5.2); RDW 16.9 % (11.6-15.6); WHITE BLOOD COUNT 10.7 K/mm3 (4.0-10.0)
[2020-05-10 15:15] LABS: CHLORIDE 105 mmol/L (98-107); POTASSIUM 4.1 mmol/L (3.5-5.1); SODIUM 139 mmol/L (136-145)
[2020-05-10 15:17] LABS: INR 1.1 (0.83-1.09); PROTHROMBIN TIME (PATIENT) 13.3 SEC (9.7-13.0)
[2020-05-10 15:18] LABS: ANION GAP 10 MMOL/L (8-16); BLOOD UREA NITROGEN 15.8 mg/dL (7-18); CALCIUM 8.8 mg/dL (8.5-10.1); CO2 25 mmol/L (21-32)
[2020-05-10 15:19] LABS: GLUCOSE,RANDOM 105 mg/dL (74-106)
[2020-05-10 15:20] LABS: ACTIVATED PTT 25.4 SECONDS (25.2-36.5)
[2020-05-10 15:21] LABS: CHOLESTEROL 167 mg/dL (50-200); SGOT/AST 22 U/L (15-37)
[2020-05-10 15:22] LABS: CREATININE 1.1 mg/dL (0.55-1.3); LDL CHOLESTEROL (ONLY SJRH) 106 mg/dL (5-100); TOT PROT 6.4 g/dl (6.4-8.2); TRIGLYCERIDES 204 mg/dL (0-150)
[2020-05-10 15:24] LABS: ALK PHOS 153 U/L (45-117)
[2020-05-10 15:28] LABS: BILIRUBIN,TOTAL 0.6 mg/dL (0.2-1)
[2020-05-10 15:31] LABS: HDL CHOLESTEROL 46 mg/dL (40-60); SGPT/ALT 25 U/L (13-61)
[2020-05-10] MEDS ORDERED: ASPIRIN 300 MG SUPP.RECT PR ONE (15:48)
[2020-05-10] MEDS ORDERED: ASPIRIN 81 MG CHEWABLE TABLETS ONE (15:55)
[2020-05-10] MEDS: SODIUM CHLORIDE 1,000 ML IV SCH (17:03)
[2020-05-10] MEDS ORDERED: MIDAZOLAM HCL 2 MG/2 ML SINGLE DOSE VIAL ONE (17:18)
[2020-05-10] MEDS ORDERED: MIDAZOLAM HCL 2 MG/2 ML SINGLE DOSE VIAL IVPUSH ONE (17:21)
[2020-05-11 03:43] LABS: URINE APPEARANCE CLEAR; URINE BILIRUBIN NEGATIVE (NEGATIVE); URINE COLOR YELLOW; URINE GLUCOSE (UA) NEGATIVE (NEGATIVE); URINE KETONE NEGATIVE (NEGATIVE); URINE PROTEIN NEGATIVE (NEGATIVE)
[2020-05-11 03:44] LABS: EPI CELLS 7 /uL (0-25.1); HYALINE CASTS 0.1 /uL (0-3.1); URINE BACTERIA 58577 /uL (0-1359); URINE LEUK ESTERASE NEGATIVE (NEGATIVE); URINE NITRITE Positive (NEGATIVE); URINE RBC 4 /uL (0-23.9); URINE WBC 29 /uL (0-25.8)
[2020-05-11 04:15] VITALS: BMI 29.5
[2020-05-11 07:11] LABS: BASO % 1.1 % (0-2.0); EOS % 4.1 % (0-4.5); HEMOGLOBIN 12.8 GM/dL (10.7-15.3); LYMPH % 26.6 % (8-40); MCH 31.2 pg (25.7-33.7); MCHC 32.7 g/dl (32.0-36.0); MEAN CELL VOLUME 95.3 fl (80-96); MEAN PLT VOLUME 8.7 fl (7.5-11.1); MONO % 13.5 % (3.8-10.2); NEUT % 54.7 % (42.8-82.8); PLATELET COUNT 184 K/MM3 (134-434); RBC 4.09 M/mm3 (3.60-5.2); RDW 16.6 % (11.6-15.6); WHITE BLOOD COUNT 7.8 K/mm3 (4.0-10.0)
[2020-05-11 07:29] LABS: CHLORIDE 106 mmol/L (98-107); POTASSIUM 4.1 mmol/L (3.5-5.1); SODIUM 139 mmol/L (136-145)
[2020-05-11 07:36] LABS: ANION GAP 6 MMOL/L (8-16); BLOOD UREA NITROGEN 12.6 mg/dL (7-18); CALCIUM 8.6 mg/dL (8.5-10.1); CO2 27 mmol/L (21-32); MAGNESIUM 2.3 mg/dL (1.8-2.4)
[2020-05-11 07:37] LABS: GLUCOSE,RANDOM 75 mg/dL (74-106)
[2020-05-11 07:39] LABS: CHOLESTEROL 175 mg/dL (50-200); CREATININE 0.9 mg/dL (0.55-1.3); SGOT/AST 20 U/L (15-37); SGPT/ALT 25 U/L (13-61); TRIGLYCERIDES 131 mg/dL (0-150)
[2020-05-11 07:40] LABS: ALK PHOS 143 U/L (45-117); BILIRUBIN,TOTAL 0.6 mg/dL (0.2-1); HDL CHOLESTEROL 47 mg/dL (40-60); LDL CHOLESTEROL (ONLY SJRH) 113 mg/dL (5-100)
[2020-05-11] MEDS ORDERED: APIXABAN 2.5 MG TABLET PO SCH (10:00)
[2020-05-11] MEDS ORDERED: ASPIRIN 81 MG CHEWABLE TABLETS PO SCH (10:00)
[2020-05-11] MEDS ORDERED: PT OWN MED DRAWER 7, Y5N ONE (12:22)
[2020-05-11] MEDS: FOLIC ACID 1 MG TABLET (FP) PO SCH (12:27)
[2020-05-11] MEDS: PANTOPRAZOLE 40 MG TABLET PO SCH (12:27)
[2020-05-11] MEDS: DIVALPROEX SODIUM 500 MG TABLET E.C. PO SCH ×2 (13:34→21:10)
[2020-05-11] MEDS: VENLAFAXINE HCL 75 MG E.R. CAPSULES PO SCH (13:34)
[2020-05-11] MEDS ORDERED: LORazepam 0.5 MG TABLET PO SCH (15:30)
[2020-05-11] MEDS: MELATONIN 1 MG TABLET PO SCH (21:09)
[2020-05-11] MEDS: ATORVASTATIN CA 40 MG TABLET (FP) PO SCH (21:10)
[2020-05-11] MEDS: THIAMINE HCL 100 MG TABLET (FP) PO SCH (21:10)
[2020-05-11] MEDS: traZODone HCL 50 MG TABLET (FP) PO SCH (21:10)
[2020-05-11] MEDS ORDERED: DIVALPROEX SODIUM 500 MG TABLET E.C. PO SCH (22:00)
[2020-05-12] MEDS: SODIUM CHLORIDE 1,000 ML IV SCH ×2 (05:33→13:45)
[2020-05-12] MEDS: THIAMINE HCL 100 MG TABLET (FP) PO SCH ×3 (06:48→21:18)
[2020-05-12] MEDS ORDERED: PT OWN MED DRAWER 7, Y5N ONE ×2 (09:16→09:17)
[2020-05-12] MEDS: FOLIC ACID 1 MG TABLET (FP) PO SCH (09:21)
[2020-05-12] MEDS: PANTOPRAZOLE 40 MG TABLET PO SCH (09:21)
[2020-05-12] MEDS: DIVALPROEX SODIUM 500 MG TABLET E.C. PO SCH ×2 (09:21→21:18)
[2020-05-12] MEDS: VENLAFAXINE HCL 75 MG E.R. CAPSULES PO SCH (09:22)
[2020-05-12] MEDS: ATORVASTATIN CA 40 MG TABLET (FP) PO SCH (21:18)
[2020-05-12] MEDS: traZODone HCL 50 MG TABLET (FP) PO SCH (21:18)
[2020-05-12] MEDS: MELATONIN 1 MG TABLET PO SCH (21:18)
[2020-05-13] MEDS: THIAMINE HCL 100 MG TABLET (FP) PO SCH ×2 (06:24→15:00)
[2020-05-13] MEDS ORDERED: PT OWN MED DRAWER 7, Y5N ONE (10:08)
[2020-05-13] MEDS: VENLAFAXINE HCL 75 MG E.R. CAPSULES PO SCH (10:11)
[2020-05-13] MEDS: PANTOPRAZOLE 40 MG TABLET PO SCH (10:12)
[2020-05-13] MEDS: FOLIC ACID 1 MG TABLET (FP) PO SCH (10:12)
[2020-05-13] MEDS: DIVALPROEX SODIUM 500 MG TABLET E.C. PO SCH (10:12)
[2020-05-13] MEDS: SODIUM CHLORIDE 1,000 ML IV SCH (13:45)
[2020-05-13 14:35] VITALS: BP 167/111; PULSE 112; TEMP 98.2
== END 2020-05-13 15:00 | DRG 57 ==
LOC: JER 13:39 → JERBED 15:53 → J4S 18:56
PROVIDERS: ADMIT Internal Medicine; ATTEND Internal Medicine
DX: I69.320 Aphasia following cerebral infarction (principal); R29.705 NIHSS score 5; F03.90 Unspecified dementia, unspecified severity, without behavioral disturbance, psychotic disturbance, mood disturbance, and anxiety; I48.91 Unspecified atrial fibrillation; I10 Essential (primary) hypertension; K21.9 Gastro-esophageal reflux disease without esophagitis; E78.5 Hyperlipidemia, unspecified
CPT/HCPCS: 36415; 70450-TC; 70496-TC; 70498-TC; 71045-TC-FY; 80053; 80061; 81003; 82550; 82607; 83036; 83721; 83735; 84443; 84484; 85025; 85610; 85730; 86140; 86900; 93005; 93010; 97116-GP; 97161-GP; 99285-25; C9803; U0003

== ENCOUNTER 2021-04-25 17:50 | Emergency (ER) | payer OTHER, MEDICARE ==
[2021-04-25 18:16] VITALS: BMI 29.3
[2021-04-26 07:30] VITALS: BP 179/81; PULSE 94; TEMP 98.6
== END 2021-04-26 10:03 | disposition home or self-care (01) ==
LOC: JER 17:50
DX: Z04.41 Encounter for examination and observation following alleged adult rape (principal)
CPT/HCPCS: 99283-25

== ENCOUNTER 2021-12-05 10:15 | Inpatient (IN) | payer OTHER, MEDICARE ==
[2021-12-05] MEDS ORDERED: HALOPERIDOL LACTATE 5 MG/ML IM ONE (10:38)
[2021-12-05] MEDS ORDERED: ACETAMINOPHEN 1000 MG/100 ML BAG IVPB ONE (10:38)
[2021-12-05] MEDS ORDERED: ACETAMINOPHEN INJECTION 100 ML IVPB ONE (11:25)
[2021-12-05] MEDS ORDERED: HALOPERIDOL LACTATE 5 MG/ML ONE (11:25)
[2021-12-05] MEDS ORDERED: PROPOFOL 200 MG/20 ML VIAL IVPUSH ONE (12:26)
[2021-12-05] MEDS ORDERED: PROPOFOL 20 ML ONE (12:49)
[2021-12-05 13:08] LABS: BASO % 0.5 % (0-2.0); EOS % 0.5 % (0-4.5); HEMATOCRIT 46.6 % (32.4-45.2); HEMOGLOBIN 15.5 GM/dL (10.7-15.3); LYMPH % 9.2 % (8-40); MCHC 33.3 g/dl (32.0-36.0); MEAN CELL VOLUME 95.9 fl (80-96); MEAN PLT VOLUME 10.2 fl (7.5-11.1); MONO % 7.3 % (3.8-10.2); NEUT % 82.5 % (42.8-82.8); PLATELET COUNT 257 10^3/uL (134-434); RBC 4.86 M/mm3 (3.60-5.2); RDW 13.2 % (11.6-15.6); WHITE BLOOD COUNT 17.6 K/mm3 (4.0-10.0)
[2021-12-05 13:13] LABS: INR 1.02 (0.83-1.09); PROTHROMBIN TIME (PATIENT) 11.7 SEC (9.7-13.0)
[2021-12-05 13:16] LABS: ACTIVATED PTT 23.5 SECONDS (25.2-36.5); CALCIUM 10.3 mg/dL (8.5-10.1)
[2021-12-05 13:17] LABS: ALBUMIN 4.3 g/dl (3.4-5.0); BLOOD UREA NITROGEN 13.8 mg/dL (7-18)
[2021-12-05 13:20] LABS: CREATININE 1.1 mg/dL (0.55-1.3)
[2021-12-05 13:21] LABS: BILIRUBIN,TOTAL 0.9 mg/dL (0.2-1)
[2021-12-05 13:22] LABS: TOT PROT 8.7 g/dl (6.4-8.2)
[2021-12-05] MEDS ORDERED: CEFTRIAXONE 1,000 MG in DEXTROSE 5%-WATER - 50 ML IVPB ONE (14:07)
[2021-12-05] MEDS ORDERED: CEFTRIAXONE 1 GM/50 ML BAG ONE (14:20)
[2021-12-05] MEDS ORDERED: DIVALPROEX NA *ER* EXTEND REL 500 MG TABLET.SA (FP) PO ONE (15:42)
[2021-12-05] MEDS ORDERED: DIVALPROEX SODIUM 500 MG TABLET E.C. ONE (18:38)
[2021-12-05 18:59] LABS: EPI CELLS >36 /uL (0-25.1); HYALINE CASTS 6 /uL (0-3.1); PH,URINE 7.5 (5.0-8.0); URINE APPEARANCE CLEAR; URINE BACTERIA >9,000 /uL (0-1359); URINE BILIRUBIN NEGATIVE (NEGATIVE); URINE COLOR YELLOW; URINE GLUCOSE (UA) NEGATIVE (NEGATIVE); URINE KETONE 1+ (NEGATIVE); URINE LEUK ESTERASE NEGATIVE (NEGATIVE); URINE NITRITE POSITIVE (NEGATIVE); URINE PROTEIN NEGATIVE (NEGATIVE); URINE RBC 1 /uL (0-23.9); URINE UROBILINOGEN 0.2 mg/dL (0.2-1.0); URINE WBC 8 /uL (0-25.8)
[2021-12-05] MEDS ORDERED: LORazepam 0.5 MG TABLET PO PRN (19:51)
[2021-12-05] MEDS ORDERED: ACETAMINOPHEN 325 MG TABLET (FP) PO PRN (19:59)
[2021-12-05] MEDS: ATORVASTATIN CA 40 MG TABLET (FP) PO SCH (23:00)
[2021-12-05] MEDS: THIAMINE HCL 100 MG TABLET (FP) PO SCH (23:00)
[2021-12-05] MEDS: traZODone HCL 50 MG TABLET (FP) PO SCH (23:00)
[2021-12-05] MEDS: MELATONIN 1 MG TABLET PO SCH (23:00)
[2021-12-05] MEDS: METOPROLOL TARTRATE 50 MG TABLET (FP) PO SCH (23:03)
[2021-12-05] MEDS: DIVALPROEX SODIUM 500 MG TABLET E.C. PO SCH (23:11)
[2021-12-06] MEDS: THIAMINE HCL 100 MG TABLET (FP) PO SCH ×3 (06:14→21:04)
[2021-12-06] MEDS ORDERED: cefTRIAXone SODIUM 1 GM VIAL ONE (09:26)
[2021-12-06] MEDS ORDERED: DEXTROSE 5%-WATER - 50 ML IVPB ONE (09:26)
[2021-12-06] MEDS: CYANOCOBALAMIN (VITAMIN B-12) 100 MCG TABLET PO SCH (09:29)
[2021-12-06] MEDS: METOPROLOL TARTRATE 50 MG TABLET (FP) PO SCH ×2 (09:29→21:04)
[2021-12-06] MEDS: PANTOPRAZOLE 40 MG TABLET PO SCH (09:29)
[2021-12-06] MEDS: POLYETHYLENE GLYCOL (HEALTHYLAX) 3350 17 GM PACKET PO SCH (09:29)
[2021-12-06] MEDS: VENLAFAXINE HCL 75 MG E.R. CAPSULES PO SCH (09:29)
[2021-12-06] MEDS: CEFTRIAXONE 1 GM in DEXTROSE 5%-WATER - 50 ML IVPB SCH (09:29)
[2021-12-06] MEDS: FOLIC ACID 1 MG TABLET (FP) PO SCH (09:29)
[2021-12-06] MEDS: LOSARTAN POTASSIUM 50 MG TABLET PO SCH (09:29)
[2021-12-06] MEDS ORDERED: ENOXAPARIN NA (PORCINE) 40 MG/0.4 ML DISP.SYRIN SQ SCH (10:00)
[2021-12-06 10:38] LABS: BASO % 0.4 % (0-2.0); EOS % 0.5 % (0-4.5); HEMATOCRIT 40.2 % (32.4-45.2); HEMOGLOBIN 13.7 GM/dL (10.7-15.3); LYMPH % 9.1 % (8-40); MCH 32.5 pg (25.7-33.7); MCHC 34.1 g/dl (32.0-36.0); MEAN CELL VOLUME 95.4 fl (80-96); MEAN PLT VOLUME 9.6 fl (7.5-11.1); MONO % 9.7 % (3.8-10.2); NEUT % 80.3 % (42.8-82.8); PLATELET COUNT 226 10^3/uL (134-434); RBC 4.22 M/mm3 (3.60-5.2); RDW 13.7 % (11.6-15.6); WHITE BLOOD COUNT 14.2 K/mm3 (4.0-10.0)
[2021-12-06] MEDS: DIVALPROEX SODIUM 500 MG TABLET E.C. PO SCH ×2 (10:39→21:04)
[2021-12-06 11:09] LABS: BLOOD UREA NITROGEN 13.9 mg/dL (7-18); CALCIUM 9.3 mg/dL (8.5-10.1)
[2021-12-06 11:14] LABS: BILIRUBIN,TOTAL 0.8 mg/dL (0.2-1); TOT PROT 7.2 g/dl (6.4-8.2)
[2021-12-06 11:27] LABS: ALBUMIN 3.4 g/dl (3.4-5.0)
[2021-12-06] MEDS: traZODone HCL 50 MG TABLET (FP) PO SCH (21:04)
[2021-12-06] MEDS: MELATONIN 1 MG TABLET PO SCH (21:04)
[2021-12-06] MEDS: ATORVASTATIN CA 40 MG TABLET (FP) PO SCH (21:04)
[2021-12-07] MEDS: THIAMINE HCL 100 MG TABLET (FP) PO SCH ×3 (05:38→22:15)
[2021-12-07] MEDS ORDERED: cefTRIAXone SODIUM 1 GM VIAL ONE (09:01)
[2021-12-07] MEDS ORDERED: DEXTROSE 5%-WATER - 50 ML IVPB ONE (09:01)
[2021-12-07] MEDS: VENLAFAXINE HCL 75 MG E.R. CAPSULES PO SCH (09:14)
[2021-12-07] MEDS: CEFTRIAXONE 1 GM in DEXTROSE 5%-WATER - 50 ML IVPB SCH (09:14)
[2021-12-07] MEDS: LOSARTAN POTASSIUM 50 MG TABLET PO SCH (09:15)
[2021-12-07] MEDS: POLYETHYLENE GLYCOL (HEALTHYLAX) 3350 17 GM PACKET PO SCH (09:15)
[2021-12-07] MEDS: METOPROLOL TARTRATE 50 MG TABLET (FP) PO SCH ×2 (09:15→22:16)
[2021-12-07] MEDS: CYANOCOBALAMIN (VITAMIN B-12) 100 MCG TABLET PO SCH (09:15)
[2021-12-07] MEDS: PANTOPRAZOLE 40 MG TABLET PO SCH (09:15)
[2021-12-07] MEDS: FOLIC ACID 1 MG TABLET (FP) PO SCH (09:15)
[2021-12-07] MEDS: DIVALPROEX SODIUM 500 MG TABLET E.C. PO SCH ×2 (10:00→22:16)
[2021-12-07] MEDS ORDERED: PROPOFOL 20 ML ONE ×2 (13:52→17:22)
[2021-12-07] MEDS ORDERED: MIDAZOLAM HCL 2 MG/2 ML SINGLE DOSE VIAL ONE ×2 (13:53→14:37)
[2021-12-07] MEDS ORDERED: ceFAZolin SODIUM 1 GM VIAL ONE (15:00)
[2021-12-07] MEDS ORDERED: PHENYLEPHRINE HCL 10 MG/1 ML SINGLE DOSE VIAL ONE (15:06)
[2021-12-07] MEDS ORDERED: VANCOMYCIN 1,000 MG VIAL (RESTRICTED TO ID ONLY) ONE ×2 (15:07→16:49)
[2021-12-07] MEDS ORDERED: ceFAZolin SODIUM 1 GM VIAL IVPB ONE (15:15)
[2021-12-07] MEDS ORDERED: TRANEXAMIC ACID 1000 MG/10 ML VIAL ONE (15:32)
[2021-12-07] MEDS ORDERED: VANCOMYCIN 1,000 MG VIAL (RESTRICTED TO ID ONLY) IVPB ONE (15:38)
[2021-12-07] MEDS ORDERED: ONDANSETRON 4 MG/2 ML VIAL IVPUSH PRN ×2 (17:02→18:30)
[2021-12-07] MEDS ORDERED: LACTATED RINGERS SOLUTION 1,000 ML IV SCH ×2 (17:15→18:30)
[2021-12-07] MEDS ORDERED: MAGNESIUM HYDROX 2400MG/30ML ORAL SUSPENSION 30 ML CUP PO PRN (17:38)
[2021-12-07] MEDS ORDERED: MAG HYDROX/AL HYDROX/SIMETH 30 ML UNIT-DOSE CUP PO PRN (17:38)
[2021-12-07] MEDS ORDERED: FENTANYL CITRATE/PF 50 MCG/ML VIAL ONE ×2 (18:20→18:39)
[2021-12-07] MEDS ORDERED: ACETAMINOPHEN 325 MG TABLET (FP) PO PRN (18:30)
[2021-12-07] MEDS ORDERED: LORazepam 0.5 MG TABLET PO PRN (18:30)
[2021-12-07] MEDS: LACTATED RINGERS SOLUTION 1,000 ML IV SCH (22:14)
[2021-12-07] MEDS: MELATONIN 1 MG TABLET PO SCH (22:15)
[2021-12-07] MEDS: ATORVASTATIN CA 40 MG TABLET (FP) PO SCH (22:15)
[2021-12-07] MEDS: traZODone HCL 50 MG TABLET (FP) PO SCH (22:16)
[2021-12-07] MEDS: SENNOSIDES/DOCUSATE COMBO (SENNA PLUS) TABLET (UD) PO SCH (22:16)
[2021-12-07] MEDS: CEFAZOLIN SODIUM 2 GM in DEXTROSE 5%-WATER 100 ML IVPB SCH (23:22)
[2021-12-08] MEDS: THIAMINE HCL 100 MG TABLET (FP) PO SCH ×3 (06:38→22:03)
[2021-12-08] MEDS: CEFAZOLIN SODIUM 2 GM in DEXTROSE 5%-WATER 100 ML IVPB SCH ×2 (07:37→14:19)
[2021-12-08 09:57] LABS: BASO % 0.4 % (0-2.0); EOS % 0.3 % (0-4.5); HEMOGLOBIN 11.7 GM/dL (10.7-15.3); LYMPH % 4.9 % (8-40); MCH 32.3 pg (25.7-33.7); MCHC 33.5 g/dl (32.0-36.0); MEAN CELL VOLUME 96.3 fl (80-96); MEAN PLT VOLUME 10.3 fl (7.5-11.1); MONO % 10.8 % (3.8-10.2); NEUT % 83.6 % (42.8-82.8); PLATELET COUNT 186 10^3/uL (134-434); RBC 3.63 M/mm3 (3.60-5.2); RDW 13.3 % (11.6-15.6)
[2021-12-08] MEDS ORDERED: ENOXAPARIN NA (PORCINE) 40 MG/0.4 ML DISP.SYRIN SQ SCH (10:00)
[2021-12-08 10:12] LABS: CALCIUM 8.4 mg/dL (8.5-10.1)
[2021-12-08 10:13] LABS: BLOOD UREA NITROGEN 17.5 mg/dL (7-18)
[2021-12-08 10:17] LABS: BILIRUBIN,TOTAL 0.5 mg/dL (0.2-1); CREATININE 0.8 mg/dL (0.55-1.3); TOT PROT 5.8 g/dl (6.4-8.2)
[2021-12-08] MEDS: SENNOSIDES/DOCUSATE COMBO (SENNA PLUS) TABLET (UD) PO SCH ×2 (10:21→22:03)
[2021-12-08] MEDS: LOSARTAN POTASSIUM 50 MG TABLET PO SCH (10:22)
[2021-12-08] MEDS: PANTOPRAZOLE 40 MG TABLET PO SCH (10:22)
[2021-12-08] MEDS: CYANOCOBALAMIN (VITAMIN B-12) 100 MCG TABLET PO SCH (10:22)
[2021-12-08] MEDS: MULTIVITAMINS (DAILY MVI) TABLET (FP) PO SCH (10:22)
[2021-12-08] MEDS: METOPROLOL TARTRATE 50 MG TABLET (FP) PO SCH ×2 (10:22→22:03)
[2021-12-08] MEDS: VENLAFAXINE HCL 75 MG E.R. CAPSULES PO SCH (10:22)
[2021-12-08] MEDS: FOLIC ACID 1 MG TABLET (FP) PO SCH (10:22)
[2021-12-08] MEDS: DIVALPROEX SODIUM 500 MG TABLET E.C. PO SCH ×2 (10:23→22:03)
[2021-12-08] MEDS: POLYETHYLENE GLYCOL (HEALTHYLAX) 3350 17 GM PACKET PO SCH (10:23)
[2021-12-08 10:26] LABS: ALBUMIN 2.5 g/dl (3.4-5.0)
[2021-12-08] MEDS: LACTATED RINGERS SOLUTION 1,000 ML IV SCH (21:07)
[2021-12-08] MEDS: MELATONIN 1 MG TABLET PO SCH (22:02)
[2021-12-08] MEDS: traZODone HCL 50 MG TABLET (FP) PO SCH (22:03)
[2021-12-08] MEDS: ATORVASTATIN CA 40 MG TABLET (FP) PO SCH (22:03)
[2021-12-09] MEDS: THIAMINE HCL 100 MG TABLET (FP) PO SCH ×3 (06:37→22:41)
[2021-12-09 07:36] LABS: BASO % 0.2 % (0-2.0); EOS % 0.4 % (0-4.5); HEMATOCRIT 35.1 % (32.4-45.2); HEMOGLOBIN 11.6 GM/dL (10.7-15.3); LYMPH % 8.1 % (8-40); MCH 31.9 pg (25.7-33.7); MCHC 33.2 g/dl (32.0-36.0); MEAN CELL VOLUME 96.2 fl (80-96); MEAN PLT VOLUME 9.6 fl (7.5-11.1); MONO % 12.8 % (3.8-10.2); NEUT % 78.5 % (42.8-82.8); PLATELET COUNT 179 10^3/uL (134-434); RBC 3.65 M/mm3 (3.60-5.2); RDW 13.6 % (11.6-15.6); WHITE BLOOD COUNT 14.7 K/mm3 (4.0-10.0)
[2021-12-09] MEDS ORDERED: HEPARIN NA (PORCINE) 5,000 UNITS/ML 1ML VIAL IVPUSH PRN ×2 (09:01)
[2021-12-09] MEDS ORDERED: HEPARIN - 25,000 UNIT in SODIUM CHLORIDE 495 ML IV SCH (09:15)
[2021-12-09] MEDS: PANTOPRAZOLE 40 MG TABLET PO SCH (11:23)
[2021-12-09] MEDS: SENNOSIDES/DOCUSATE COMBO (SENNA PLUS) TABLET (UD) PO SCH ×2 (11:26→22:25)
[2021-12-09] MEDS: MULTIVITAMINS (DAILY MVI) TABLET (FP) PO SCH (11:27)
[2021-12-09] MEDS: LOSARTAN POTASSIUM 50 MG TABLET PO SCH (11:27)
[2021-12-09] MEDS: CYANOCOBALAMIN (VITAMIN B-12) 100 MCG TABLET PO SCH (11:28)
[2021-12-09] MEDS: FOLIC ACID 1 MG TABLET (FP) PO SCH (11:28)
[2021-12-09] MEDS: METOPROLOL TARTRATE 50 MG TABLET (FP) PO SCH ×2 (11:28→22:25)
[2021-12-09] MEDS: VENLAFAXINE HCL 75 MG E.R. CAPSULES PO SCH (11:28)
[2021-12-09] MEDS: DIVALPROEX SODIUM 500 MG TABLET E.C. PO SCH ×2 (11:28→22:26)
[2021-12-09] MEDS: POLYETHYLENE GLYCOL (HEALTHYLAX) 3350 17 GM PACKET PO SCH (11:29)
[2021-12-09] MEDS ORDERED: APIXABAN 2.5 MG TABLET PO SCH (11:30)
[2021-12-09] MEDS: ACETAMINOPHEN 1000 MG/100 ML BAG IVPB SCH ×2 (17:24→22:23)
[2021-12-09] MEDS: LACTATED RINGERS SOLUTION 1,000 ML IV SCH (22:16)
[2021-12-09] MEDS: MELATONIN 1 MG TABLET PO SCH (22:24)
[2021-12-09] MEDS: traZODone HCL 50 MG TABLET (FP) PO SCH (22:25)
[2021-12-09] MEDS: APIXABAN 5 MG TABLET PO SCH (22:26)
[2021-12-09] MEDS: ATORVASTATIN CA 40 MG TABLET (FP) PO SCH (22:42)
[2021-12-10] MEDS: ACETAMINOPHEN 1000 MG/100 ML BAG IVPB SCH ×3 (04:11→16:54)
[2021-12-10] MEDS: THIAMINE HCL 100 MG TABLET (FP) PO SCH ×3 (05:59→22:42)
[2021-12-10] MEDS: FOLIC ACID 1 MG TABLET (FP) PO SCH (10:05)
[2021-12-10] MEDS: LOSARTAN POTASSIUM 50 MG TABLET PO SCH (10:05)
[2021-12-10] MEDS: MULTIVITAMINS (DAILY MVI) TABLET (FP) PO SCH (10:05)
[2021-12-10] MEDS: POLYETHYLENE GLYCOL (HEALTHYLAX) 3350 17 GM PACKET PO SCH (10:05)
[2021-12-10] MEDS: CYANOCOBALAMIN (VITAMIN B-12) 100 MCG TABLET PO SCH (10:06)
[2021-12-10] MEDS: VENLAFAXINE HCL 75 MG E.R. CAPSULES PO SCH (10:06)
[2021-12-10] MEDS: SENNOSIDES/DOCUSATE COMBO (SENNA PLUS) TABLET (UD) PO SCH ×2 (10:06→22:42)
[2021-12-10] MEDS: METOPROLOL TARTRATE 50 MG TABLET (FP) PO SCH ×2 (10:06→22:43)
[2021-12-10] MEDS: DIVALPROEX SODIUM 500 MG TABLET E.C. PO SCH ×2 (10:07→22:42)
[2021-12-10] MEDS: APIXABAN 5 MG TABLET PO SCH ×2 (10:07→22:43)
[2021-12-10] MEDS: PANTOPRAZOLE 40 MG TABLET PO SCH (10:07)
[2021-12-10 12:02] LABS: BASO % 0.5 % (0-2.0); EOS % 1.4 % (0-4.5); HEMATOCRIT 32.2 % (32.4-45.2); HEMOGLOBIN 10.8 GM/dL (10.7-15.3); MCH 32.1 pg (25.7-33.7); MCHC 33.4 g/dl (32.0-36.0); MEAN PLT VOLUME 9.1 fl (7.5-11.1); NEUT % 81.1 % (42.8-82.8); PLATELET COUNT 190 10^3/uL (134-434); RBC 3.35 M/mm3 (3.60-5.2); RDW 13.6 % (11.6-15.6); WHITE BLOOD COUNT 14.3 K/mm3 (4.0-10.0)
[2021-12-10 12:24] LABS: CALCIUM 8.8 mg/dL (8.5-10.1)
[2021-12-10 12:25] LABS: BLOOD UREA NITROGEN 16.6 mg/dL (7-18)
[2021-12-10 12:28] LABS: CREATININE 0.7 mg/dL (0.55-1.3)
[2021-12-10 12:29] LABS: TOT PROT 5.3 g/dl (6.4-8.2)
[2021-12-10 12:30] LABS: BILIRUBIN,TOTAL 0.4 mg/dL (0.2-1)
[2021-12-10 14:11] LABS: ANISOCYTOSIS 1+; MACROCYTOSIS 0; PLATELET ESTIMATE NORMAL
[2021-12-10] MEDS: LACTATED RINGERS SOLUTION 1,000 ML IV SCH ×2 (18:30→20:45)
[2021-12-10] MEDS: ATORVASTATIN CA 40 MG TABLET (FP) PO SCH (22:42)
[2021-12-10] MEDS: MELATONIN 1 MG TABLET PO SCH (22:42)
[2021-12-10] MEDS: traZODone HCL 50 MG TABLET (FP) PO SCH (22:43)
[2021-12-11] MEDS: THIAMINE HCL 100 MG TABLET (FP) PO SCH ×3 (05:43→21:36)
[2021-12-11] MEDS: LACTATED RINGERS SOLUTION 1,000 ML IV SCH ×2 (06:55→20:23)
[2021-12-11 09:53] LABS: HEMATOCRIT 30.2 % (32.4-45.2); HEMOGLOBIN 10.1 GM/dL (10.7-15.3); MCH 32.3 pg (25.7-33.7); MCHC 33.6 g/dl (32.0-36.0); MEAN CELL VOLUME 96.1 fl (80-96); MEAN PLT VOLUME 9.6 fl (7.5-11.1); PLATELET COUNT 212 10^3/uL (134-434); RBC 3.14 M/mm3 (3.60-5.2); RDW 13.6 % (11.6-15.6); WHITE BLOOD COUNT 12.3 K/mm3 (4.0-10.0)
[2021-12-11] MEDS: METOPROLOL TARTRATE 50 MG TABLET (FP) PO SCH ×2 (10:38→21:36)
[2021-12-11] MEDS: CYANOCOBALAMIN (VITAMIN B-12) 100 MCG TABLET PO SCH (10:38)
[2021-12-11] MEDS: SENNOSIDES/DOCUSATE COMBO (SENNA PLUS) TABLET (UD) PO SCH ×2 (10:38→21:36)
[2021-12-11] MEDS: MULTIVITAMINS (DAILY MVI) TABLET (FP) PO SCH (10:39)
[2021-12-11] MEDS: PANTOPRAZOLE 40 MG TABLET PO SCH (10:39)
[2021-12-11] MEDS: VENLAFAXINE HCL 75 MG E.R. CAPSULES PO SCH (10:39)
[2021-12-11] MEDS: FOLIC ACID 1 MG TABLET (FP) PO SCH (10:39)
[2021-12-11] MEDS: LOSARTAN POTASSIUM 50 MG TABLET PO SCH (10:39)
[2021-12-11] MEDS: DIVALPROEX SODIUM 500 MG TABLET E.C. PO SCH ×2 (10:39→21:36)
[2021-12-11] MEDS: POLYETHYLENE GLYCOL (HEALTHYLAX) 3350 17 GM PACKET PO SCH (10:39)
[2021-12-11] MEDS: APIXABAN 5 MG TABLET PO SCH ×2 (10:39→21:36)
[2021-12-11] MEDS: CEFUROXIME AXETIL 500 MG TABLET PO SCH ×2 (13:12→21:36)
[2021-12-11] MEDS: traZODone HCL 50 MG TABLET (FP) PO SCH (21:36)
[2021-12-11] MEDS: ATORVASTATIN CA 40 MG TABLET (FP) PO SCH (21:36)
[2021-12-11] MEDS: MELATONIN 1 MG TABLET PO SCH (21:36)
[2021-12-12] MEDS: THIAMINE HCL 100 MG TABLET (FP) PO SCH ×3 (06:20→21:34)
[2021-12-12 09:52] LABS: HEMATOCRIT 31.7 % (32.4-45.2); MCH 33.1 pg (25.7-33.7); MCHC 34.7 g/dl (32.0-36.0); MEAN CELL VOLUME 95.4 fl (80-96); MEAN PLT VOLUME 8.7 fl (7.5-11.1); PLATELET COUNT 255 10^3/uL (134-434); RBC 3.32 M/mm3 (3.60-5.2); RDW 13.8 % (11.6-15.6); WHITE BLOOD COUNT 10.6 K/mm3 (4.0-10.0)
[2021-12-12] MEDS: PANTOPRAZOLE 40 MG TABLET PO SCH (10:04)
[2021-12-12] MEDS: CYANOCOBALAMIN (VITAMIN B-12) 100 MCG TABLET PO SCH (10:04)
[2021-12-12] MEDS: SENNOSIDES/DOCUSATE COMBO (SENNA PLUS) TABLET (UD) PO SCH ×2 (10:04→21:33)
[2021-12-12] MEDS: FOLIC ACID 1 MG TABLET (FP) PO SCH (10:04)
[2021-12-12] MEDS: VENLAFAXINE HCL 75 MG E.R. CAPSULES PO SCH (10:04)
[2021-12-12] MEDS: CEFUROXIME AXETIL 500 MG TABLET PO SCH ×2 (10:04→21:34)
[2021-12-12] MEDS: LOSARTAN POTASSIUM 50 MG TABLET PO SCH (10:05)
[2021-12-12] MEDS: MULTIVITAMINS (DAILY MVI) TABLET (FP) PO SCH (10:05)
[2021-12-12] MEDS: APIXABAN 5 MG TABLET PO SCH ×2 (10:05→21:33)
[2021-12-12] MEDS: METOPROLOL TARTRATE 50 MG TABLET (FP) PO SCH ×2 (10:05→21:34)
[2021-12-12] MEDS: DIVALPROEX SODIUM 500 MG TABLET E.C. PO SCH ×2 (10:09→21:33)
[2021-12-12] MEDS: POLYETHYLENE GLYCOL (HEALTHYLAX) 3350 17 GM PACKET PO SCH (10:23)
[2021-12-12] MEDS: oxyCODONE HCL 5 MG TABLET PO PRN (14:51)
[2021-12-12] MEDS: MELATONIN 1 MG TABLET PO SCH (21:34)
[2021-12-12] MEDS: ATORVASTATIN CA 40 MG TABLET (FP) PO SCH (21:34)
[2021-12-12] MEDS: traZODone HCL 50 MG TABLET (FP) PO SCH (21:34)
[2021-12-12 23:12] VITALS: BMI 28.6
[2021-12-13] MEDS: THIAMINE HCL 100 MG TABLET (FP) PO SCH ×2 (06:04→13:31)
[2021-12-13] MEDS: oxyCODONE HCL 5 MG TABLET PO PRN ×2 (08:14→15:08)
[2021-12-13 09:19] LABS: HEMATOCRIT 31.5 % (32.4-45.2); HEMOGLOBIN 10.6 GM/dL (10.7-15.3); MCH 32.4 pg (25.7-33.7); MCHC 33.8 g/dl (32.0-36.0); MEAN CELL VOLUME 95.9 fl (80-96); MEAN PLT VOLUME 8.5 fl (7.5-11.1); PLATELET COUNT 328 10^3/uL (134-434); RBC 3.28 M/mm3 (3.60-5.2); RDW 13.4 % (11.6-15.6); WHITE BLOOD COUNT 12.9 K/mm3 (4.0-10.0)
[2021-12-13] MEDS: MULTIVITAMINS (DAILY MVI) TABLET (FP) PO SCH (09:33)
[2021-12-13] MEDS: CYANOCOBALAMIN (VITAMIN B-12) 100 MCG TABLET PO SCH (09:33)
[2021-12-13] MEDS: PANTOPRAZOLE 40 MG TABLET PO SCH (09:33)
[2021-12-13] MEDS: METOPROLOL TARTRATE 50 MG TABLET (FP) PO SCH (09:33)
[2021-12-13] MEDS: VENLAFAXINE HCL 75 MG E.R. CAPSULES PO SCH (09:33)
[2021-12-13] MEDS: DIVALPROEX SODIUM 500 MG TABLET E.C. PO SCH (09:34)
[2021-12-13] MEDS: APIXABAN 5 MG TABLET PO SCH (09:34)
[2021-12-13] MEDS: CEFUROXIME AXETIL 500 MG TABLET PO SCH (09:34)
[2021-12-13] MEDS: FOLIC ACID 1 MG TABLET (FP) PO SCH (09:34)
[2021-12-13] MEDS: SENNOSIDES/DOCUSATE COMBO (SENNA PLUS) TABLET (UD) PO SCH (09:34)
[2021-12-13] MEDS: LOSARTAN POTASSIUM 50 MG TABLET PO SCH (09:34)
[2021-12-13] MEDS: POLYETHYLENE GLYCOL (HEALTHYLAX) 3350 17 GM PACKET PO SCH (09:34)
[2021-12-13] MEDS ORDERED: ASCORBIC ACID 250 MG TABLET (FP) PO SCH (10:00)
[2021-12-13] MEDS ORDERED: amLODIPine BESYLATE 5 MG TABLET (FP) PO SCH (17:00)
[2021-12-13 18:11] VITALS: PULSE 78; TEMP 98.6
[2021-12-13 18:53] VITALS: BP 153/66
== END 2021-12-13 19:55 | DRG 522 ==
LOC: JER 10:15 → JERBED 14:01 → J6S 20:17
PROVIDERS: ADMIT Internal Medicine; ATTEND Internal Medicine
PROC: 0RSJXZZ Reposition Right Shoulder Joint, External Approach (ICD-10-PCS; principal; 2021-12-05)
PROC: 0SRR0JZ Replacement of Right Hip Joint, Femoral Surface with Synthetic Substitute, Open Approach (ICD-10-PCS; 2021-12-07)
DX: S72.001A Fracture of unspecified part of neck of right femur, initial encounter for closed fracture (principal); G40.802 Other epilepsy, not intractable, without status epilepticus; N39.0 Urinary tract infection, site not specified; S43.084A Other dislocation of right shoulder joint, initial encounter; F03.90 Unspecified dementia, unspecified severity, without behavioral disturbance, psychotic disturbance, mood disturbance, and anxiety; I48.91 Unspecified atrial fibrillation; E78.5 Hyperlipidemia, unspecified; F41.9 Anxiety disorder, unspecified; K21.9 Gastro-esophageal reflux disease without esophagitis; I69.920 Aphasia following unspecified cerebrovascular disease; B96.20 Unspecified Escherichia coli [E. coli] as the cause of diseases classified elsewhere; W18.39XA Other fall on same level, initial encounter; Y92.098 Other place in other non-institutional residence as the place of occurrence of the external cause
CPT/HCPCS: 36415; 70450-TC; 71045-TC-FY; 72125-TC; 72170-TC-FY; 73030-TC-RT-FY; 73070-TC-RT-FY; 73130-TC-RT-FY; 73200-TC-RT; 73502-TC-RT-FY; 73552-TC-RT-FY; 80048; 80053; 80164; 81003; 84443; 85025; 85027; 85610; 85730; 86850; 86900; 86901; 86922; 87077; 87086; 87186; 88305-TC; 88311-TC; 93005; 93010; 93306-TC; 93922; 93925-TC; 94760; 97162-GP; 99285-25; C9803-CS; U0003; U0005

== ENCOUNTER 2022-01-23 12:08 | Emergency (ER) | payer OTHER, MEDICARE ==
[2022-01-23 12:25] VITALS: RESP 18; BMI 29.5
[2022-01-23 15:37] VITALS: BP 140/55; PULSE 68; TEMP 98.4
== END 2022-01-23 15:46 ==
LOC: JER 12:08
DX: S59.902A Unspecified injury of left elbow, initial encounter (principal)
CPT/HCPCS: 73070-TC-LT-FY; 73070-TC-RT-FY; 73110-TC-LT-FY; 99284-25

== ENCOUNTER 2022-10-28 15:41 | Inpatient (IN) | payer OTHER, MEDICARE ==
[2022-10-28] MEDS ORDERED: METOPROLOL TARTRATE 5 MG/5 ML VIAL IVPUSH ONE (17:17)
[2022-10-28 17:26] LABS: INR 1.35 (0.83-1.09); PROTHROMBIN TIME (PATIENT) 15.6 SEC (9.7-13.0)
[2022-10-28 17:29] LABS: ACTIVATED PTT 33.5 SECONDS (25.2-36.5)
[2022-10-28 17:37] LABS: MAGNESIUM 2.3 mg/dL (1.8-2.4)
[2022-10-28 17:45] LABS: N-TERMINAL BNP 2245.2 pg/ml (5-450)
[2022-10-28 18:05] LABS: VENOUS BASE EXCESS 6.3 mmol/L (-2-2); VENOUS O2 SATURATION 57.9 % (70-80); VENOUS PCO2 53.3 mmHg (38-52); VENOUS PH 7.403 (7.310-7.410)
[2022-10-28 18:07] LABS: HEMATOCRIT 37.8 % (32.4-45.2); HEMOGLOBIN 12.1 GM/dL (10.7-15.3); MCH 29.9 pg (25.7-33.7); MCHC 32.2 g/dl (32.0-36.0); MEAN PLT VOLUME 8.4 fl (7.5-11.1); PLATELET COUNT 410 10^3/uL (134-434); RBC 4.06 M/mm3 (3.60-5.2); RDW 15.2 % (11.6-15.6); WHITE BLOOD COUNT 16.3 K/mm3 (4.0-10.0)
[2022-10-28] MEDS ORDERED: METOPROLOL TARTRATE 5 MG/5 ML VIAL ONE ×3 (18:08→20:51)
[2022-10-28 18:27] LABS: ALBUMIN 2.6 g/dl (3.4-5.0); BLOOD UREA NITROGEN 22.7 mg/dL (7-18); CALCIUM 9.2 mg/dL (8.5-10.1)
[2022-10-28 18:31] LABS: CREATININE 0.9 mg/dL (0.55-1.3)
[2022-10-28 18:32] LABS: BILIRUBIN,TOTAL 0.4 mg/dL (0.2-1); TOT PROT 6.9 g/dl (6.4-8.2)
[2022-10-28] MEDS: METOPROLOL TARTRATE 5 MG/5 ML VIAL IVPUSH ONE ×2 (18:42→20:49)
[2022-10-28 19:24] LABS: ANISOCYTOSIS 1+; MACROCYTOSIS 0
[2022-10-28] MEDS ORDERED: FUROSEMIDE 100 MG/10 ML INJECTABLE VIAL IVPUSH ONE (19:52)
[2022-10-28] MEDS ORDERED: DIGOXIN 0.5 MG/2 ML AMPUL IVPUSH ONE (19:52)
[2022-10-28] MEDS ORDERED: DIGOXIN 0.5 MG/2 ML AMPUL ONE (20:51)
[2022-10-28] MEDS ORDERED: FUROSEMIDE 40 MG/4 ML INJECTABLE VIAL ONE (20:52)
[2022-10-29 06:34] LABS: BASO % 0.8 % (0-2.0); EOS % 0.6 % (0-4.5); HEMATOCRIT 37.6 % (32.4-45.2); HEMOGLOBIN 12.5 GM/dL (10.7-15.3); MCH 30.6 pg (25.7-33.7); MCHC 33.3 g/dl (32.0-36.0); MEAN PLT VOLUME 8.9 fl (7.5-11.1); MONO % 10.7 % (3.8-10.2); NEUT % 76.9 % (42.8-82.8); PLATELET COUNT 395 10^3/uL (134-434); RBC 4.09 M/mm3 (3.60-5.2); RDW 15.1 % (11.6-15.6); WHITE BLOOD COUNT 12.8 K/mm3 (4.0-10.0)
[2022-10-29 06:53] LABS: POTASSIUM 4.7 mmol/L (3.5-5.1)
[2022-10-29 06:55] LABS: CALCIUM 8.9 mg/dL (8.5-10.1)
[2022-10-29 06:56] LABS: ALBUMIN 2.4 g/dl (3.4-5.0); BLOOD UREA NITROGEN 20.8 mg/dL (7-18)
[2022-10-29 06:58] LABS: CREATININE 0.9 mg/dL (0.55-1.3)
[2022-10-29 07:01] LABS: BILIRUBIN,TOTAL 0.4 mg/dL (0.2-1); TOT PROT 6.8 g/dl (6.4-8.2)
[2022-10-29] MEDS: DIVALPROEX SODIUM 500 MG TABLET E.C. PO SCH ×3 (07:10→21:48)
[2022-10-29] MEDS: APIXABAN 2.5 MG TABLET PO SCH ×3 (07:10→21:41)
[2022-10-29 08:29] LABS: ANISOCYTOSIS 0; MACROCYTOSIS 0
[2022-10-29] MEDS: FOLIC ACID 1 MG TABLET (FP) PO SCH (09:20)
[2022-10-29] MEDS: amLODIPine BESYLATE 10 MG TABLET (FP) PO SCH (09:21)
[2022-10-29] MEDS: LOSARTAN POTASSIUM 50 MG TABLET PO SCH (09:21)
[2022-10-29] MEDS: PANTOPRAZOLE 40 MG TABLET PO SCH (09:21)
[2022-10-29] MEDS: SENNOSIDES/DOCUSATE COMBO (SENNA PLUS) TABLET (UD) PO SCH ×2 (09:21→21:40)
[2022-10-29] MEDS ORDERED: METOPROLOL TARTRATE 50 MG TABLET (FP) PO SCH (10:00)
[2022-10-29] MEDS ORDERED: METOPROLOL TARTRATE 25 MG TABLET (FP) PO ONE (11:53)
[2022-10-29] MEDS: LORazepam 0.5 MG TABLET PO SCH ×3 (11:55→21:40)
[2022-10-29] MEDS: THIAMINE HCL 100 MG TABLET (FP) PO SCH ×3 (11:55→21:41)
[2022-10-29] MEDS: VENLAFAXINE HCL 75 MG E.R. CAPSULES PO SCH (11:56)
[2022-10-29] MEDS: FUROSEMIDE 40 MG/4 ML INJECTABLE VIAL IVPUSH SCH (12:02)
[2022-10-29] MEDS: CYANOCOBALAMIN (VITAMIN B-12) 100 MCG TABLET PO SCH (13:34)
[2022-10-29 14:14] VITALS: BMI 29.1
[2022-10-29] MEDS ORDERED: DIGOXIN 0.5 MG/2 ML AMPUL IVPUSH ONE (15:47)
[2022-10-29] MEDS ORDERED: METOPROLOL TARTRATE 5 MG/5 ML VIAL IVPUSH ONE (17:05)
[2022-10-29] MEDS ORDERED: dilTIAZem HCL 50 MG/10 ML - 10 ML VIAL IVPUSH PRN (18:18)
[2022-10-29] MEDS: dilTIAZem HCL 25 MG/5 ML - 5 ML VIAL IVPUSH PRN (19:04)
[2022-10-29] MEDS: METOPROLOL TARTRATE 50 MG TABLET (FP) PO SCH (21:39)
[2022-10-29] MEDS: ATORVASTATIN CA 40 MG TABLET (FP) PO SCH (21:48)
[2022-10-29] MEDS: traZODone HCL 50 MG TABLET (FP) PO SCH (21:48)
[2022-10-30] MEDS: MELATONIN 1 MG TABLET PO SCH ×2 (00:11→22:14)
[2022-10-30] MEDS: THIAMINE HCL 100 MG TABLET (FP) PO SCH ×3 (06:25→22:15)
[2022-10-30] MEDS: LORazepam 0.5 MG TABLET PO SCH ×3 (06:25→22:12)
[2022-10-30] MEDS: FOLIC ACID 1 MG TABLET (FP) PO SCH (10:47)
[2022-10-30] MEDS: FUROSEMIDE 40 MG/4 ML INJECTABLE VIAL IVPUSH SCH (10:47)
[2022-10-30] MEDS: LOSARTAN POTASSIUM 50 MG TABLET PO SCH (10:47)
[2022-10-30] MEDS: amLODIPine BESYLATE 10 MG TABLET (FP) PO SCH (10:48)
[2022-10-30] MEDS: PANTOPRAZOLE 40 MG TABLET PO SCH (10:48)
[2022-10-30] MEDS: VENLAFAXINE HCL 75 MG E.R. CAPSULES PO SCH (10:48)
[2022-10-30] MEDS: METOPROLOL TARTRATE 50 MG TABLET (FP) PO SCH ×2 (10:48→22:13)
[2022-10-30] MEDS: APIXABAN 2.5 MG TABLET PO SCH ×2 (10:48→22:13)
[2022-10-30] MEDS: SENNOSIDES/DOCUSATE COMBO (SENNA PLUS) TABLET (UD) PO SCH ×2 (10:49→22:14)
[2022-10-30] MEDS: CYANOCOBALAMIN (VITAMIN B-12) 100 MCG TABLET PO SCH (10:49)
[2022-10-30] MEDS: DIVALPROEX SODIUM 500 MG TABLET E.C. PO SCH ×2 (11:25→22:13)
[2022-10-30] MEDS: dilTIAZem HCL 25 MG/5 ML - 5 ML VIAL IVPUSH PRN (18:11)
[2022-10-30] MEDS: ATORVASTATIN CA 40 MG TABLET (FP) PO SCH (22:13)
[2022-10-30] MEDS: traZODone HCL 50 MG TABLET (FP) PO SCH (22:13)
[2022-10-31] MEDS: LORazepam 0.5 MG TABLET PO SCH ×3 (06:18→22:13)
[2022-10-31] MEDS: THIAMINE HCL 100 MG TABLET (FP) PO SCH ×4 (06:18→22:16)
[2022-10-31] MEDS: PANTOPRAZOLE 40 MG TABLET PO SCH (09:04)
[2022-10-31] MEDS: FOLIC ACID 1 MG TABLET (FP) PO SCH (09:04)
[2022-10-31] MEDS: METOPROLOL TARTRATE 50 MG TABLET (FP) PO SCH ×2 (09:05→22:15)
[2022-10-31] MEDS: SENNOSIDES/DOCUSATE COMBO (SENNA PLUS) TABLET (UD) PO SCH ×2 (09:05→22:15)
[2022-10-31] MEDS: LOSARTAN POTASSIUM 50 MG TABLET PO SCH (09:07)
[2022-10-31] MEDS: APIXABAN 2.5 MG TABLET PO SCH ×2 (09:08→22:15)
[2022-10-31] MEDS: amLODIPine BESYLATE 10 MG TABLET (FP) PO SCH (09:09)
[2022-10-31] MEDS: FUROSEMIDE 40 MG/4 ML INJECTABLE VIAL IVPUSH SCH (09:09)
[2022-10-31] MEDS: VENLAFAXINE HCL 75 MG E.R. CAPSULES PO SCH (09:10)
[2022-10-31] MEDS: CYANOCOBALAMIN (VITAMIN B-12) 100 MCG TABLET PO SCH (09:11)
[2022-10-31] MEDS: DIVALPROEX SODIUM 500 MG TABLET E.C. PO SCH ×2 (09:11→22:19)
[2022-10-31] MEDS: traZODone HCL 50 MG TABLET (FP) PO SCH (22:14)
[2022-10-31] MEDS: ATORVASTATIN CA 40 MG TABLET (FP) PO SCH (22:14)
[2022-10-31] MEDS: MELATONIN 1 MG TABLET PO SCH (22:15)
[2022-11-01] MEDS: ALBUTEROL SO4 0.083% IH SOL 2.5 MG/3 ML VIAL.NEB. NEB PRN ×2 (00:14→11:40)
[2022-11-01] MEDS: LORazepam 0.5 MG TABLET PO SCH ×3 (05:43→21:31)
[2022-11-01] MEDS: THIAMINE HCL 100 MG TABLET (FP) PO SCH ×3 (05:44→21:31)
[2022-11-01 08:11] LABS: HEMOGLOBIN 12.9 GM/dL (10.7-15.3); MCH 30.5 pg (25.7-33.7); MCHC 33.2 g/dl (32.0-36.0); MEAN CELL VOLUME 91.8 fl (80-96); MEAN PLT VOLUME 9.1 fl (7.5-11.1); PLATELET COUNT 407 10^3/uL (134-434); RBC 4.24 M/mm3 (3.60-5.2); RDW 14.8 % (11.6-15.6)
[2022-11-01 08:18] LABS: POTASSIUM 4.4 mmol/L (3.5-5.1)
[2022-11-01 08:26] LABS: ALBUMIN 2.4 g/dl (3.4-5.0); BLOOD UREA NITROGEN 27.5 mg/dL (7-18); CALCIUM 8.8 mg/dL (8.5-10.1)
[2022-11-01 08:30] LABS: BILIRUBIN,TOTAL 0.4 mg/dL (0.2-1)
[2022-11-01 08:31] LABS: TOT PROT 6.6 g/dl (6.4-8.2)
[2022-11-01 09:10] LABS: ANISOCYTOSIS 0; MACROCYTOSIS 0
[2022-11-01] MEDS: FUROSEMIDE 40 MG/4 ML INJECTABLE VIAL IVPUSH SCH (09:58)
[2022-11-01] MEDS: FOLIC ACID 1 MG TABLET (FP) PO SCH (09:58)
[2022-11-01] MEDS: METOPROLOL TARTRATE 50 MG TABLET (FP) PO SCH ×2 (09:59→21:31)
[2022-11-01] MEDS: amLODIPine BESYLATE 10 MG TABLET (FP) PO SCH (09:59)
[2022-11-01] MEDS: SENNOSIDES/DOCUSATE COMBO (SENNA PLUS) TABLET (UD) PO SCH ×2 (10:00→21:32)
[2022-11-01] MEDS: LOSARTAN POTASSIUM 50 MG TABLET PO SCH (10:01)
[2022-11-01] MEDS: VENLAFAXINE HCL 75 MG E.R. CAPSULES PO SCH (10:02)
[2022-11-01] MEDS: APIXABAN 2.5 MG TABLET PO SCH ×2 (10:02→21:32)
[2022-11-01] MEDS: PANTOPRAZOLE 40 MG TABLET PO SCH (10:02)
[2022-11-01] MEDS: DIVALPROEX SODIUM 500 MG TABLET E.C. PO SCH ×2 (10:03→21:31)
[2022-11-01] MEDS: dilTIAZem HCL 25 MG/5 ML - 5 ML VIAL IVPUSH PRN (11:13)
[2022-11-01] MEDS ORDERED: METOPROLOL TARTRATE 25 MG TABLET (FP) PO ONE (12:14)
[2022-11-01] MEDS: CYANOCOBALAMIN (VITAMIN B-12) 100 MCG TABLET PO SCH (13:02)
[2022-11-01] MEDS: ATORVASTATIN CA 40 MG TABLET (FP) PO SCH (21:32)
[2022-11-01] MEDS: MELATONIN 1 MG TABLET PO SCH (21:32)
[2022-11-01] MEDS: traZODone HCL 50 MG TABLET (FP) PO SCH (21:44)
[2022-11-02] MEDS: LORazepam 0.5 MG TABLET PO SCH ×3 (05:45→21:21)
[2022-11-02] MEDS: THIAMINE HCL 100 MG TABLET (FP) PO SCH ×3 (05:45→21:21)
[2022-11-02] MEDS: METOPROLOL TARTRATE 50 MG TABLET (FP) PO SCH ×2 (10:16→21:21)
[2022-11-02] MEDS: LOSARTAN POTASSIUM 50 MG TABLET PO SCH (10:16)
[2022-11-02] MEDS: FOLIC ACID 1 MG TABLET (FP) PO SCH (10:16)
[2022-11-02] MEDS: PANTOPRAZOLE 40 MG TABLET PO SCH (10:16)
[2022-11-02] MEDS: FUROSEMIDE 40 MG/4 ML INJECTABLE VIAL IVPUSH SCH (10:16)
[2022-11-02] MEDS: APIXABAN 2.5 MG TABLET PO SCH ×2 (10:17→21:21)
[2022-11-02] MEDS: amLODIPine BESYLATE 10 MG TABLET (FP) PO SCH ×2 (10:17→10:24)
[2022-11-02] MEDS: CYANOCOBALAMIN (VITAMIN B-12) 100 MCG TABLET PO SCH (10:17)
[2022-11-02] MEDS: DIVALPROEX SODIUM 500 MG TABLET E.C. PO SCH ×2 (10:17→21:22)
[2022-11-02] MEDS: SENNOSIDES/DOCUSATE COMBO (SENNA PLUS) TABLET (UD) PO SCH ×2 (10:17→21:21)
[2022-11-02] MEDS: VENLAFAXINE HCL 75 MG E.R. CAPSULES PO SCH (10:17)
[2022-11-02] MEDS: dilTIAZem HCL 25 MG/5 ML - 5 ML VIAL IVPUSH PRN (21:20)
[2022-11-02] MEDS: MELATONIN 1 MG TABLET PO SCH (21:21)
[2022-11-02] MEDS: traZODone HCL 50 MG TABLET (FP) PO SCH (21:22)
[2022-11-02] MEDS: ATORVASTATIN CA 40 MG TABLET (FP) PO SCH (21:22)
[2022-11-03] MEDS: LORazepam 0.5 MG TABLET PO SCH ×3 (06:10→21:22)
[2022-11-03] MEDS: THIAMINE HCL 100 MG TABLET (FP) PO SCH ×3 (06:10→21:22)
[2022-11-03] MEDS: SENNOSIDES/DOCUSATE COMBO (SENNA PLUS) TABLET (UD) PO SCH ×2 (09:29→21:20)
[2022-11-03] MEDS: amLODIPine BESYLATE 10 MG TABLET (FP) PO SCH (09:29)
[2022-11-03] MEDS: FUROSEMIDE 40 MG TABLET (FP) PO SCH (09:29)
[2022-11-03] MEDS: VENLAFAXINE HCL 75 MG E.R. CAPSULES PO SCH (09:30)
[2022-11-03] MEDS: APIXABAN 2.5 MG TABLET PO SCH ×2 (09:30→21:22)
[2022-11-03] MEDS: LOSARTAN POTASSIUM 50 MG TABLET PO SCH (09:30)
[2022-11-03] MEDS: FOLIC ACID 1 MG TABLET (FP) PO SCH (09:30)
[2022-11-03] MEDS: PANTOPRAZOLE 40 MG TABLET PO SCH (09:30)
[2022-11-03] MEDS: METOPROLOL TARTRATE 50 MG TABLET (FP) PO SCH ×2 (09:30→21:21)
[2022-11-03] MEDS: DIVALPROEX SODIUM 500 MG TABLET E.C. PO SCH ×2 (09:30→21:22)
[2022-11-03] MEDS: CYANOCOBALAMIN (VITAMIN B-12) 100 MCG TABLET PO SCH (09:30)
[2022-11-03] MEDS: DIGOXIN 0.125 MG TABLET PO SCH (11:45)
[2022-11-03] MEDS: MELATONIN 1 MG TABLET PO SCH (21:19)
[2022-11-03] MEDS: ATORVASTATIN CA 40 MG TABLET (FP) PO SCH (21:20)
[2022-11-03] MEDS: traZODone HCL 50 MG TABLET (FP) PO SCH (21:22)
[2022-11-04] MEDS: THIAMINE HCL 100 MG TABLET (FP) PO SCH ×2 (06:00→14:14)
[2022-11-04] MEDS: LORazepam 0.5 MG TABLET PO SCH ×2 (06:00→14:09)
[2022-11-04] MEDS: VENLAFAXINE HCL 75 MG E.R. CAPSULES PO SCH (09:46)
[2022-11-04] MEDS: FOLIC ACID 1 MG TABLET (FP) PO SCH (09:46)
[2022-11-04] MEDS: DIVALPROEX SODIUM 500 MG TABLET E.C. PO SCH (09:46)
[2022-11-04] MEDS: FUROSEMIDE 40 MG TABLET (FP) PO SCH (09:46)
[2022-11-04] MEDS: LOSARTAN POTASSIUM 50 MG TABLET PO SCH (09:46)
[2022-11-04] MEDS: DIGOXIN 0.125 MG TABLET PO SCH (09:46)
[2022-11-04] MEDS: APIXABAN 2.5 MG TABLET PO SCH (09:46)
[2022-11-04] MEDS: PANTOPRAZOLE 40 MG TABLET PO SCH (09:47)
[2022-11-04] MEDS: CYANOCOBALAMIN (VITAMIN B-12) 100 MCG TABLET PO SCH (09:47)
[2022-11-04] MEDS: SENNOSIDES/DOCUSATE COMBO (SENNA PLUS) TABLET (UD) PO SCH (09:47)
[2022-11-04] MEDS: METOPROLOL TARTRATE 50 MG TABLET (FP) PO SCH (09:47)
[2022-11-04] MEDS: amLODIPine BESYLATE 10 MG TABLET (FP) PO SCH (09:47)
[2022-11-04 15:54] VITALS: RESP 20
[2022-11-04 18:47] VITALS: BP 104/67; PULSE 117; TEMP 97.6
== END 2022-11-04 20:30 | DRG 291 ==
LOC: JER 15:41 → JERBED 21:28 → J4W 10-29 08:49
PROVIDERS: ADMIT Internal Medicine; ATTEND Internal Medicine
DX: I11.0 Hypertensive heart disease with heart failure (principal); I50.23 Acute on chronic systolic (congestive) heart failure; I48.92 Unspecified atrial flutter; F03.90 Unspecified dementia, unspecified severity, without behavioral disturbance, psychotic disturbance, mood disturbance, and anxiety; I69.320 Aphasia following cerebral infarction; I48.91 Unspecified atrial fibrillation; Z79.01 Long term (current) use of anticoagulants; E78.5 Hyperlipidemia, unspecified; G40.909 Epilepsy, unspecified, not intractable, without status epilepticus; K21.9 Gastro-esophageal reflux disease without esophagitis; F41.9 Anxiety disorder, unspecified
CPT/HCPCS: 0241U-QW; 36415; 71045-TC-FY; 80053; 82803; 82962; 83605; 83735; 83880; 84439; 84443; 84484; 85025; 85610; 85730; 93005; 93010; 93306-TC; 94640; 99285-25; C9803-CS; U0003; U0005

== ENCOUNTER 2023-05-01 18:52 | Inpatient (IN) | payer OTHER, MEDICARE ==
[2023-05-01] MEDS ORDERED: SODIUM CHLORIDE 0.9% 500 ML INFUS.BAG IV ONE ×4 (19:56→22:45)
[2023-05-01 20:43] LABS: VENOUS BASE EXCESS 0.4 mmol/L (-2-2); VENOUS O2 SATURATION 70.3 % (70-80); VENOUS PH 7.412 (7.310-7.410)
[2023-05-01] MEDS ORDERED: ACETAMINOPHEN 1000 MG/100 ML BAG IVPB ONE (20:49)
[2023-05-01] MEDS ORDERED: VANCOMYCIN 1,000 MG in DEXTROSE 5%-WATER - 250 ML IVPB ONE (20:49)
[2023-05-01] MEDS ORDERED: PIPERACILLIN/TAZOB 4.5 GM 4.5 GM in DEXTROSE 5%-WATER 100 ML IVPB ONE (20:50)
[2023-05-01] MEDS ORDERED: ACETAMINOPHEN INJECTION 100 ML IVPB ONE (20:57)
[2023-05-01] MEDS ORDERED: PIPERACILLIN/TAZOB 4.5 GM 4.5 GM/100 ML BAG IVPB ONE (20:57)
[2023-05-01 20:58] LABS: BASO % 0.4 % (0-2.0); EOS % 0.1 % (0-4.5); HEMATOCRIT 38.1 % (32.4-45.2); HEMOGLOBIN 11.9 GM/dL (10.7-15.3); LYMPH % 3.7 % (8-40); MCH 30.2 pg (25.7-33.7); MCHC 31.4 g/dl (32.0-36.0); MEAN CELL VOLUME 96.3 fl (80-96); MEAN PLT VOLUME 12.6 fl (7.5-11.1); MONO % 4.7 % (3.8-10.2); NEUT % 91.1 % (42.8-82.8); PLATELET COUNT 111 10^3/uL (134-434); RBC 3.95 M/mm3 (3.60-5.2); RDW 15.8 % (11.6-15.6)
[2023-05-01 21:02] LABS: WHITE BLOOD COUNT 32.5 K/mm3 (4.0-10.0)
[2023-05-01 21:07] LABS: INR 1.56 (0.83-1.09)
[2023-05-01 21:09] LABS: ACTIVATED PTT 27.1 SECONDS (25.2-36.5)
[2023-05-01 21:16] LABS: LACTIC ACID 3.3 mmol/L (0.4-2.0)
[2023-05-01 21:19] LABS: CHLORIDE 112 mmol/L (98-107); POTASSIUM 5.2 mmol/L (3.5-5.1); SODIUM 148 mmol/L (136-145)
[2023-05-01 21:22] LABS: ALBUMIN 2.3 g/dl (3.4-5.0); ANION GAP 11 mmol/L (4-13); BLOOD UREA NITROGEN 100.3 mg/dL (7-18); CALCIUM 8.4 mg/dL (8.5-10.1); CO2 26 mmol/L (21-32); GLUCOSE,RANDOM 96 mg/dL (74-106); MAGNESIUM 3.4 mg/dL (1.8-2.4)
[2023-05-01 21:25] LABS: CREATININE 4.1 mg/dL (0.55-1.3); SGOT/AST 23 U/L (15-37); SGPT/ALT 9 U/L (13-61)
[2023-05-01 21:27] LABS: BILIRUBIN,TOTAL 0.5 mg/dL (0.2-1); TOT PROT 6.1 g/dl (6.4-8.2)
[2023-05-01 21:29] LABS: ALK PHOS 160 U/L (45-117)
[2023-05-01 21:40] LABS: ANISOCYTOSIS 1+; MACROCYTOSIS 1+; OVALOCYTE 1+; TOXIC GRANULATION 1+
[2023-05-01 22:40] LABS: EPI CELLS 29 /uL (0-25.1); HYALINE CASTS 30 /uL (0-3.1); PH,URINE 5.5 (5.0-8.0); URINE APPEARANCE TURBID; URINE BACTERIA >9,000 /uL (0-1359); URINE BILIRUBIN 1+ (NEGATIVE); URINE COLOR DK YELLOW; URINE GLUCOSE (UA) NEGATIVE (NEGATIVE); URINE KETONE NEGATIVE (NEGATIVE); URINE LEUK ESTERASE 3+ (NEGATIVE); URINE NITRITE NEGATIVE (NEGATIVE); URINE PROTEIN 2+ (NEGATIVE); URINE WBC 8332 /uL (0-25.8)
[2023-05-02 00:06] LABS: LACTIC ACID 2.5 mmol/L (0.4-2.0)
[2023-05-02] MEDS ORDERED: ACETAMINOPHEN 1000 MG/100 ML BAG IVPB PRN (02:50)
[2023-05-02] MEDS: PIPERACILLIN/TAZOB 2.25 GM 2.25 GM in DEXTROSE 5%-WATER - 50 ML IVPB SCH ×3 (03:50→17:28)
[2023-05-02] MEDS ORDERED: PIPERACILLIN/TAZOB 2.25 GM 2.25 GM/50 ML BAG IVPB ONE ×2 (04:18→10:17)
[2023-05-02 06:49] LABS: POTASSIUM 5.1 mmol/L (3.5-5.1)
[2023-05-02 06:51] LABS: BLOOD UREA NITROGEN 101.7 mg/dL (7-18); CALCIUM 8.3 mg/dL (8.5-10.1)
[2023-05-02 06:52] LABS: ALBUMIN 2.2 g/dl (3.4-5.0)
[2023-05-02 06:55] LABS: CREATININE 4.1 mg/dL (0.55-1.3)
[2023-05-02 06:56] LABS: BILIRUBIN,TOTAL 0.6 mg/dL (0.2-1); TOT PROT 5.8 g/dl (6.4-8.2)
[2023-05-02 07:55] LABS: HEMATOCRIT 36.9 % (32.4-45.2); HEMOGLOBIN 11.5 GM/dL (10.7-15.3); MCH 30.6 pg (25.7-33.7); MCHC 31.2 g/dl (32.0-36.0); MEAN CELL VOLUME 98.2 fl (80-96); PLATELET COUNT 85 10^3/uL (134-434); RBC 3.76 M/mm3 (3.60-5.2); RDW 16.7 % (11.6-15.6)
[2023-05-02 08:26] LABS: WHITE BLOOD COUNT 33.8 K/mm3 (4.0-10.0)
[2023-05-02 09:07] LABS: ANISOCYTOSIS 1+; MACROCYTOSIS 0; OVALOCYTE 1+; TOXIC GRANULATION 1+
[2023-05-02] MEDS ORDERED: VENLAFAXINE HCL 75 MG E.R. CAPSULES PO SCH (10:00)
[2023-05-02] MEDS ORDERED: PANTOPRAZOLE 40 MG TABLET PO SCH (10:00)
[2023-05-02] MEDS ORDERED: DIVALPROEX SODIUM 500 MG TABLET E.C. PO SCH (10:00)
[2023-05-02] MEDS: APIXABAN 2.5 MG TABLET PO SCH ×2 (10:33→22:00)
[2023-05-02] MEDS: METOPROLOL TARTRATE 50 MG TABLET (FP) PO SCH ×2 (10:34→22:00)
[2023-05-02] MEDS: PANTOPRAZOLE SOD 40 MG SUSPENSION PACKET PO SCH (11:12)
[2023-05-02] MEDS ORDERED: SODIUM CHLORIDE 1,000 ML IV SCH (12:15)
[2023-05-02] MEDS ORDERED: METOPROLOL TARTRATE 5 MG/5 ML VIAL IVPUSH PRN (12:19)
[2023-05-02] MEDS: VENLAFAXINE HCL 37.5 MG TABLET PO SCH ×2 (14:30→22:01)
[2023-05-02] MEDS: VALPROATE SODIUM 250 MG/5 ML UNIT DOSE CUP PO SCH ×2 (14:30→22:00)
[2023-05-02] MEDS: SODIUM CHLORIDE 0.45% 1,000 ML IV SCH (14:40)
[2023-05-02] MEDS: traZODone HCL 50 MG TABLET (FP) PO SCH (22:00)
[2023-05-02] MEDS ORDERED: ATORVASTATIN CA 40 MG TABLET (FP) PO SCH (22:00)
[2023-05-02] MEDS ORDERED: ATORVASTATIN CA 20 MG TABLET (FP) ONE ×3 (22:05→22:09)
[2023-05-02] MEDS: ATORVASTATIN CA 40 MG TABLET (FP) PO SCH (22:11)
[2023-05-03] MEDS: PIPERACILLIN/TAZOB 2.25 GM 2.25 GM in DEXTROSE 5%-WATER - 50 ML IVPB SCH ×3 (02:56→17:03)
[2023-05-03] MEDS: SODIUM CHLORIDE 0.45% 1,000 ML IV SCH (02:59)
[2023-05-03] MEDS ORDERED: PIPERACILLIN/TAZOB 2.25 GM 2.25 GM in DEXTROSE 5%-WATER - 50 ML IVPB SCH (03:00)
[2023-05-03] MEDS ORDERED: SODIUM CHLORIDE 0.45% 1,000 ML IV SCH (06:30)
[2023-05-03] MEDS: PANTOPRAZOLE SOD 40 MG SUSPENSION PACKET PO SCH (10:44)
[2023-05-03] MEDS: METOPROLOL TARTRATE 50 MG TABLET (FP) PO SCH ×2 (10:44→23:15)
[2023-05-03] MEDS: VALPROATE SODIUM 250 MG/5 ML UNIT DOSE CUP PO SCH ×2 (10:44→23:14)
[2023-05-03] MEDS: APIXABAN 2.5 MG TABLET PO SCH ×2 (10:45→23:15)
[2023-05-03] MEDS: VENLAFAXINE HCL 37.5 MG TABLET PO SCH ×2 (10:45→23:14)
[2023-05-03 12:03] LABS: CHLORIDE 115 mmol/L (98-107); POTASSIUM 4.7 mmol/L (3.5-5.1); SODIUM 149 mmol/L (136-145)
[2023-05-03 12:06] LABS: ANION GAP 11 mmol/L (4-13); CO2 24 mmol/L (21-32); GLUCOSE,RANDOM 125 mg/dL (74-106)
[2023-05-03 12:08] LABS: SGPT/ALT 9 U/L (13-61)
[2023-05-03 12:09] LABS: BASO % 0.2 % (0-2.0); EOS % 0.3 % (0-4.5); HEMATOCRIT 31.4 % (32.4-45.2); HEMOGLOBIN 10.1 GM/dL (10.7-15.3); MCH 31.2 pg (25.7-33.7); MCHC 32.3 g/dl (32.0-36.0); MEAN CELL VOLUME 96.7 fl (80-96); MEAN PLT VOLUME 11.9 fl (7.5-11.1); MONO % 6.4 % (3.8-10.2); NEUT % 88.1 % (42.8-82.8); PLATELET COUNT 101 10^3/uL (134-434); RBC 3.25 M/mm3 (3.60-5.2); RDW 15.3 % (11.6-15.6); WHITE BLOOD COUNT 23.5 K/mm3 (4.0-10.0)
[2023-05-03 12:10] LABS: BILIRUBIN,TOTAL 0.3 mg/dL (0.2-1); CREATININE 3.4 mg/dL (0.55-1.3); SGOT/AST 14 U/L (15-37); TOT PROT 5.5 g/dl (6.4-8.2)
[2023-05-03 12:18] LABS: ALK PHOS 99 U/L (45-117); BLOOD UREA NITROGEN 106.3 mg/dL (7-18)
[2023-05-03 13:10] LABS: ANISOCYTOSIS 2+; MACROCYTOSIS 0; OVALOCYTE 1+; TOXIC GRANULATION 1+
[2023-05-03] MEDS ORDERED: FUROSEMIDE 40 MG/4 ML INJECTABLE VIAL IVPUSH ONE (13:15)
[2023-05-03] MEDS: DEXTROSE 5%-WATER - 1,000 ML IV SCH (13:54)
[2023-05-03] MEDS: DIGOXIN 0.125 MG TABLET PO SCH (16:13)
[2023-05-03] MEDS: traZODone HCL 50 MG TABLET (FP) PO SCH (23:14)
[2023-05-03] MEDS: ATORVASTATIN CA 40 MG TABLET (FP) PO SCH (23:15)
[2023-05-04] MEDS: PIPERACILLIN/TAZOB 2.25 GM 2.25 GM in DEXTROSE 5%-WATER - 50 ML IVPB SCH ×3 (02:50→17:20)
[2023-05-04 07:36] LABS: HEMATOCRIT 31.4 % (32.4-45.2); HEMOGLOBIN 9.8 GM/dL (10.7-15.3); MCHC 31.3 g/dl (32.0-36.0); MEAN CELL VOLUME 99.1 fl (80-96); MEAN PLT VOLUME 11.9 fl (7.5-11.1); PLATELET COUNT 151 10^3/uL (134-434); RBC 3.16 M/mm3 (3.60-5.2); RDW 15.2 % (11.6-15.6); WHITE BLOOD COUNT 17.7 K/mm3 (4.0-10.0)
[2023-05-04 09:12] LABS: ANISOCYTOSIS 0; HELMET CELLS 0; HOWELL-JOLLY BODIES 0; MACROCYTOSIS 0; OVALOCYTE 0; ROULEAU 0; SICKELED CELLS 0; TARGET CELLS 0; TEAR DROP CELLS 0; TOXIC GRANULATION 0
[2023-05-04 09:13] LABS: POTASSIUM 4.2 mmol/L (3.5-5.1)
[2023-05-04 09:24] LABS: BLOOD UREA NITROGEN 94.1 mg/dL (7-18)
[2023-05-04 09:25] LABS: ALBUMIN 2.1 g/dl (3.4-5.0)
[2023-05-04 09:26] LABS: BILIRUBIN,TOTAL 0.5 mg/dL (0.2-1); TOT PROT 5.7 g/dl (6.4-8.2)
[2023-05-04] MEDS ORDERED: VANCOMYCIN/WATER FOR INJ (PEG) 1,000 MG/200 ML BAG IVPB ONE (10:00)
[2023-05-04] MEDS: PANTOPRAZOLE SOD 40 MG SUSPENSION PACKET PO SCH (10:22)
[2023-05-04] MEDS: METOPROLOL TARTRATE 50 MG TABLET (FP) PO SCH ×2 (10:22→21:06)
[2023-05-04] MEDS: DIGOXIN 0.125 MG TABLET PO SCH (10:22)
[2023-05-04] MEDS: APIXABAN 2.5 MG TABLET PO SCH ×2 (10:23→21:06)
[2023-05-04] MEDS: VENLAFAXINE HCL 37.5 MG TABLET PO SCH ×2 (10:24→21:06)
[2023-05-04] MEDS: VALPROATE SODIUM 250 MG/5 ML UNIT DOSE CUP PO SCH ×2 (10:24→21:06)
[2023-05-04] MEDS: DEXTROSE 5%-WATER - 1,000 ML IV SCH ×2 (12:27→14:19)
[2023-05-04] MEDS ORDERED: FUROSEMIDE 20 MG TABLET (FP) PO ONE (13:30)
[2023-05-04 16:14] VITALS: BMI 29.3
[2023-05-04] MEDS: traZODone HCL 50 MG TABLET (FP) PO SCH (21:06)
[2023-05-04] MEDS: ATORVASTATIN CA 40 MG TABLET (FP) PO SCH (21:06)
[2023-05-05] MEDS: PIPERACILLIN/TAZOB 2.25 GM 2.25 GM in DEXTROSE 5%-WATER - 50 ML IVPB SCH (03:00)
[2023-05-05] MEDS: DEXTROSE 5%-WATER - 1,000 ML IV SCH ×2 (05:52→13:00)
[2023-05-05 08:43] LABS: HEMATOCRIT 31.8 % (32.4-45.2); MCH 31.5 pg (25.7-33.7); MCHC 31.4 g/dl (32.0-36.0); MEAN CELL VOLUME 100.2 fl (80-96); MEAN PLT VOLUME 11.3 fl (7.5-11.1); PLATELET COUNT 198 10^3/uL (134-434); RBC 3.17 M/mm3 (3.60-5.2); RDW 15.5 % (11.6-15.6); WHITE BLOOD COUNT 17.1 K/mm3 (4.0-10.0)
[2023-05-05 08:59] LABS: POTASSIUM 3.9 mmol/L (3.5-5.1)
[2023-05-05 09:10] LABS: CALCIUM 7.7 mg/dL (8.5-10.1)
[2023-05-05 09:11] LABS: BLOOD UREA NITROGEN 69.5 mg/dL (7-18)
[2023-05-05 09:12] LABS: ALBUMIN 1.9 g/dl (3.4-5.0)
[2023-05-05 09:14] LABS: CREATININE 2.2 mg/dL (0.55-1.3)
[2023-05-05 09:16] LABS: BILIRUBIN,TOTAL 0.4 mg/dL (0.2-1); TOT PROT 5.4 g/dl (6.4-8.2)
[2023-05-05] MEDS: CEFTRIAXONE 2 GM in DEXTROSE 5%-WATER - 50 ML IVPB SCH (09:33)
[2023-05-05] MEDS: METOPROLOL TARTRATE 50 MG TABLET (FP) PO SCH ×2 (09:34→22:00)
[2023-05-05] MEDS: PANTOPRAZOLE SOD 40 MG SUSPENSION PACKET PO SCH (09:34)
[2023-05-05] MEDS: DIGOXIN 0.125 MG TABLET PO SCH (09:35)
[2023-05-05] MEDS: VENLAFAXINE HCL 37.5 MG TABLET PO SCH ×2 (09:35→22:00)
[2023-05-05] MEDS: APIXABAN 2.5 MG TABLET PO SCH ×2 (09:35→23:19)
[2023-05-05] MEDS: MULTIVITAMINS (DAILY MVI) TABLET (FP) PO SCH (09:36)
[2023-05-05] MEDS: VALPROATE SODIUM 250 MG/5 ML UNIT DOSE CUP PO SCH ×2 (09:36→22:00)
[2023-05-05] MEDS ORDERED: ACETAMINOPHEN 1000 MG/100 ML BAG IVPB PRN (12:08)
[2023-05-05] MEDS: traZODone HCL 50 MG TABLET (FP) PO SCH (22:00)
[2023-05-05] MEDS: ATORVASTATIN CA 40 MG TABLET (FP) PO SCH (22:00)
[2023-05-06 08:29] LABS: HEMATOCRIT 31.1 % (32.4-45.2); HEMOGLOBIN 9.7 GM/dL (10.7-15.3); MCH 30.7 pg (25.7-33.7); MCHC 31.2 g/dl (32.0-36.0); MEAN CELL VOLUME 98.2 fl (80-96); MEAN PLT VOLUME 10.5 fl (7.5-11.1); PLATELET COUNT 289 10^3/uL (134-434); RBC 3.17 M/mm3 (3.60-5.2); RDW 15.3 % (11.6-15.6); WHITE BLOOD COUNT 17.9 K/mm3 (4.0-10.0)
[2023-05-06 08:54] LABS: POTASSIUM 3.8 mmol/L (3.5-5.1)
[2023-05-06 08:57] LABS: CALCIUM 7.4 mg/dL (8.5-10.1)
[2023-05-06 08:58] LABS: ALBUMIN 1.8 g/dl (3.4-5.0); BLOOD UREA NITROGEN 52.1 mg/dL (7-18)
[2023-05-06 09:01] LABS: CREATININE 1.5 mg/dL (0.55-1.3)
[2023-05-06 09:03] LABS: BILIRUBIN,TOTAL 0.3 mg/dL (0.2-1); TOT PROT 5.2 g/dl (6.4-8.2)
[2023-05-06 09:25] LABS: ANISOCYTOSIS 2+; MACROCYTOSIS 0
[2023-05-06] MEDS: MULTIVITAMINS (DAILY MVI) TABLET (FP) PO SCH (10:59)
[2023-05-06] MEDS: METOPROLOL TARTRATE 50 MG TABLET (FP) PO SCH ×2 (11:00→21:17)
[2023-05-06] MEDS: APIXABAN 2.5 MG TABLET PO SCH ×2 (11:00→21:17)
[2023-05-06] MEDS: VALPROATE SODIUM 250 MG/5 ML UNIT DOSE CUP PO SCH ×2 (11:00→21:17)
[2023-05-06] MEDS: DIGOXIN 0.125 MG TABLET PO SCH (11:00)
[2023-05-06] MEDS: PANTOPRAZOLE SOD 40 MG SUSPENSION PACKET PO SCH (11:01)
[2023-05-06] MEDS: VENLAFAXINE HCL 37.5 MG TABLET PO SCH ×2 (11:01→21:18)
[2023-05-06] MEDS: CEFTRIAXONE 2 GM in DEXTROSE 5%-WATER - 50 ML IVPB SCH (11:01)
[2023-05-06] MEDS: DEXTROSE 5%-WATER - 1,000 ML IV SCH ×3 (13:27→21:18)
[2023-05-06] MEDS: ATORVASTATIN CA 40 MG TABLET (FP) PO SCH (21:17)
[2023-05-06] MEDS: traZODone HCL 50 MG TABLET (FP) PO SCH (21:18)
[2023-05-07 07:50] LABS: POTASSIUM 4.2 mmol/L (3.5-5.1)
[2023-05-07 07:54] LABS: ALBUMIN 1.8 g/dl (3.4-5.0); CALCIUM 7.5 mg/dL (8.5-10.1)
[2023-05-07 07:55] LABS: BLOOD UREA NITROGEN 47.5 mg/dL (7-18)
[2023-05-07 07:57] LABS: CREATININE 1.4 mg/dL (0.55-1.3)
[2023-05-07 07:59] LABS: BILIRUBIN,TOTAL 0.3 mg/dL (0.2-1); TOT PROT 5.3 g/dl (6.4-8.2)
[2023-05-07] MEDS: METOPROLOL TARTRATE 50 MG TABLET (FP) PO SCH ×2 (09:12→21:07)
[2023-05-07] MEDS: DIGOXIN 0.125 MG TABLET PO SCH (09:26)
[2023-05-07] MEDS: MULTIVITAMINS (DAILY MVI) TABLET (FP) PO SCH (09:26)
[2023-05-07] MEDS: PANTOPRAZOLE SOD 40 MG SUSPENSION PACKET PO SCH (09:26)
[2023-05-07] MEDS: VENLAFAXINE HCL 37.5 MG TABLET PO SCH ×2 (09:27→21:07)
[2023-05-07] MEDS: CEFTRIAXONE 2 GM in DEXTROSE 5%-WATER - 50 ML IVPB SCH (09:27)
[2023-05-07] MEDS: VALPROATE SODIUM 250 MG/5 ML UNIT DOSE CUP PO SCH ×2 (09:27→21:07)
[2023-05-07] MEDS: APIXABAN 2.5 MG TABLET PO SCH ×2 (09:27→21:08)
[2023-05-07] MEDS: DEXTROSE 5%-WATER - 1,000 ML IV SCH (13:55)
[2023-05-07] MEDS ORDERED: DEXTROSE 5%-WATER - 1,000 ML IV SCH (15:07)
[2023-05-07] MEDS: traZODone HCL 50 MG TABLET (FP) PO SCH (21:08)
[2023-05-07] MEDS: ATORVASTATIN CA 40 MG TABLET (FP) PO SCH (21:08)
[2023-05-08 07:55] LABS: HEMATOCRIT 29.5 % (32.4-45.2); HEMOGLOBIN 9.2 GM/dL (10.7-15.3); MCH 30.3 pg (25.7-33.7); MCHC 31.2 g/dl (32.0-36.0); MEAN CELL VOLUME 97.1 fl (80-96); MEAN PLT VOLUME 10.5 fl (7.5-11.1); PLATELET COUNT 441 10^3/uL (134-434); RBC 3.04 M/mm3 (3.60-5.2); RDW 14.9 % (11.6-15.6); WHITE BLOOD COUNT 20.5 K/mm3 (4.0-10.0)
[2023-05-08 08:34] LABS: POTASSIUM 4.3 mmol/L (3.5-5.1)
[2023-05-08 08:35] LABS: ANISOCYTOSIS 1+; CALCIUM 7.2 mg/dL (8.5-10.1); MACROCYTOSIS 0
[2023-05-08 08:36] LABS: ALBUMIN 1.8 g/dl (3.4-5.0); BLOOD UREA NITROGEN 38.4 mg/dL (7-18)
[2023-05-08 08:39] LABS: CREATININE 1.1 mg/dL (0.55-1.3)
[2023-05-08 08:41] LABS: BILIRUBIN,TOTAL 0.2 mg/dL (0.2-1); TOT PROT 5.2 g/dl (6.4-8.2)
[2023-05-08] MEDS: CEFTRIAXONE 2 GM in DEXTROSE 5%-WATER - 50 ML IVPB SCH (10:34)
[2023-05-08] MEDS: PANTOPRAZOLE SOD 40 MG SUSPENSION PACKET PO SCH (10:34)
[2023-05-08] MEDS: METOPROLOL TARTRATE 50 MG TABLET (FP) PO SCH ×2 (10:34→21:11)
[2023-05-08] MEDS: MULTIVITAMINS (DAILY MVI) TABLET (FP) PO SCH (10:34)
[2023-05-08] MEDS: APIXABAN 2.5 MG TABLET PO SCH ×2 (10:34→21:11)
[2023-05-08] MEDS: VALPROATE SODIUM 250 MG/5 ML UNIT DOSE CUP PO SCH ×2 (10:35→21:10)
[2023-05-08] MEDS: VENLAFAXINE HCL 37.5 MG TABLET PO SCH ×2 (10:36→21:11)
[2023-05-08] MEDS: DIGOXIN 0.125 MG TABLET PO SCH (17:42)
[2023-05-08] MEDS: traZODone HCL 50 MG TABLET (FP) PO SCH (21:11)
[2023-05-08] MEDS: ATORVASTATIN CA 40 MG TABLET (FP) PO SCH (21:11)
[2023-05-09 07:50] LABS: HEMATOCRIT 31.6 % (32.4-45.2); HEMOGLOBIN 9.8 GM/dL (10.7-15.3); MCH 30.3 pg (25.7-33.7); MEAN CELL VOLUME 97.7 fl (80-96); PLATELET COUNT 526 10^3/uL (134-434); RBC 3.23 M/mm3 (3.60-5.2); RDW 15.1 % (11.6-15.6); WHITE BLOOD COUNT 21.9 K/mm3 (4.0-10.0)
[2023-05-09] MEDS: DIGOXIN 0.125 MG TABLET PO SCH ×2 (08:05→10:52)
[2023-05-09] MEDS ORDERED: ASCORBIC ACID 250 MG TABLET (FP) PO SCH (10:00)
[2023-05-09] MEDS ORDERED: ZINC SULFATE 220 MG CAPSULE (FP) PO SCH (10:00)
[2023-05-09] MEDS: VENLAFAXINE HCL 37.5 MG TABLET PO SCH (10:19)
[2023-05-09] MEDS: METOPROLOL TARTRATE 50 MG TABLET (FP) PO SCH (10:20)
[2023-05-09] MEDS: MULTIVITAMINS (DAILY MVI) TABLET (FP) PO SCH (10:20)
[2023-05-09] MEDS: PANTOPRAZOLE SOD 40 MG SUSPENSION PACKET PO SCH (10:21)
[2023-05-09] MEDS: APIXABAN 2.5 MG TABLET PO SCH (10:22)
[2023-05-09] MEDS: CEFTRIAXONE 2 GM in DEXTROSE 5%-WATER - 50 ML IVPB SCH (10:22)
[2023-05-09] MEDS: VALPROATE SODIUM 250 MG/5 ML UNIT DOSE CUP PO SCH (11:00)
[2023-05-09 11:39] LABS: ANISOCYTOSIS 2+; MACROCYTOSIS 2+; TEAR DROP CELLS 2+
[2023-05-09 15:31] VITALS: BP 112/71; PULSE 82; RESP 19; TEMP 97.4
== END 2023-05-09 17:50 | DRG 871 ==
LOC: JER 18:52 → JERBED 05-02 00:02 → J4W 05-02 12:44
PROVIDERS: ADMIT Internal Medicine; ATTEND Internal Medicine
DX: A41.59 Other Gram-negative sepsis (principal); R53.2 Functional quadriplegia; N17.9 Acute kidney failure, unspecified; N39.0 Urinary tract infection, site not specified; I50.22 Chronic systolic (congestive) heart failure; E87.20 Acidosis, unspecified; N13.30 Unspecified hydronephrosis; R18.8 Other ascites; I69.359 Hemiplegia and hemiparesis following cerebral infarction affecting unspecified side; A41.9 Sepsis, unspecified organism; I48.91 Unspecified atrial fibrillation; Z79.01 Long term (current) use of anticoagulants; E78.5 Hyperlipidemia, unspecified; F03.90 Unspecified dementia, unspecified severity, without behavioral disturbance, psychotic disturbance, mood disturbance, and anxiety; K21.9 Gastro-esophageal reflux disease without esophagitis; F41.9 Anxiety disorder, unspecified; I11.0 Hypertensive heart disease with heart failure; I50.9 Heart failure, unspecified; G40.909 Epilepsy, unspecified, not intractable, without status epilepticus; D69.6 Thrombocytopenia, unspecified; I69.320 Aphasia following cerebral infarction; N83.8 Other noninflammatory disorders of ovary, fallopian tube and broad ligament
CPT/HCPCS: 0241U-QW; 36415; 70450-TC; 71045-TC-FY; 74176-TC; 76775-TC; 80053; 80162; 81003; 82550; 82553; 82803; 82962; 83605; 83735; 83880; 84443; 84484; 85025; 85610; 85730; 86850; 86900; 86901; 87040; 87086; 87186; 87635; 93005; 93010; 93306-TC; 99291; G0480